=== PATIENT | male | born 1970 | race Caucasian/White ===

== ENCOUNTER → 2022-01-22 06:17 | Outpatient (CLI) | payer OTHER, SELFPAY ==
[2022-01-21 17:06] LABS: Basophils # 0.1 K/mm3 (0-0.2); Basophils % 0.9 % (0.1-2.0); Eosinophils # 0.2 K/mm3 (0.0-0.4); Eosinophils % 2.2 % (0.1-12.0); Hematocrit 48.1 % (42.0-52.0); Hemoglobin 14.9 g/dL (14.1-18.0); Lymphocytes # 1.7 K/mm3 (0.7-4.5); Lymphocytes % 17.7 % (10-50); Mean Corpuscular Hemoglobin 29.5 pg (27.0-31.2); Mean Corpuscular Volume 95.3 fl (80-94); Mean Platelet Volume 9.2 fl (7.4-10.4); Monocytes # 0.5 K/mm3 (0.1-1.0); Monocytes % 5.1 % (1.7-9.3); Neutrophils # 7.1 K/mm3 (1.8-7.8); Neutrophils % 74.2 % (37.0-80.0); Platelet Count 215 K/mm3 (142-424); Red Blood Count 5.05 M/mm3 (4.60-6.20); Red Cell Distribution Width 14.5 % (11.5-17.5); White Blood Count 9.6 K/mm3 (4.8-10.8)
[2022-01-21 17:31] LABS: Hemoglobin A1C 6.9 % (4.0-6.0)
[2022-01-21 17:53] LABS: Alanine Aminotransferase 24 U/L (12-78); Albumin Level 3.9 g/dl (3.5-5.0); Albumin/Globulin Ratio 1.1 (1.1-1.8); Alkaline Phosphatase 96 U/L (38-126); Anion Gap 11.2 mEq/L (5-15); Aspartate Amino Transferase 29 U/L (17-59); Bilirubin,Total 0.5 mg/dl (0.2-1.3); Blood Urea Nitrogen 15 mg/dl (9-20); Calcium 9.4 mg/dl (8.4-10.2); Carbon Dioxide 25 mmol/L (22.0-30.0); Chloride 103 mmol/L (98-107); Chol/HDL Ratio 4.6 (1-3.5); Cholesterol 151 mg/dl (140-200); Estimated Glomerular Filt Rate 102 ml/min (>60); GFR (African American) 123 ML/MIN (>60); Globulin 3.5 g/dL (1.3-3.2); Glucose 131 mg/dl (74-100); HDL Cholesterol 33 mg/dl (40-60); Potassium 4.2 mmoL/L (3.5-5.1); Sodium 135 mmol/L (136-145); Total Protein,Serum 7.4 g/dl (6.3-8.2); Triglycerides 193 mg/dl (30-150); VLDL Cholesterol 39 mg/dL (0-40)
[2022-01-21 18:10] LABS: Direct LDL Cholesterol 80.52 mg/dL (100-129)
[2022-01-21 18:25] LABS: Prostate Specific Ag Screen 0.3 ng/ml (0.0-4.0); Thyroid Stimulating Hormone 0.89 uIU/mL (0.465-4.68)
== END ==
PROVIDERS: PCP Family Medicine; Visit Provider Family Medicine
DX: I25.10 Atherosclerotic heart disease of native coronary artery without angina pectoris (principal); E11.9 Type 2 diabetes mellitus without complications; E66.01 Morbid (severe) obesity due to excess calories; Z68.43 Body mass index [BMI] 50.0-59.9, adult; Z76.89 Persons encountering health services in other specified circumstances; Z79.4 Long term (current) use of insulin; Z12.5 Encounter for screening for malignant neoplasm of prostate
CPT/HCPCS: 80053; 80061; 83036; 84443; 85025; G0103

== ENCOUNTER → 2022-04-27 13:19 | Outpatient (CLI) | payer OTHER, SELFPAY ==
--- NOTE | 2022-04-27 13:20 | MR_ITS ---
FINAL REPORT CLINICAL HISTORY: lower back pain, lumbar radiculopathy bilateral leg pain , numbness and tingling x years no recent injury/trauma FINDINGS: MRI LUMBAR SPINE W/O CONTRAST Multiplanar MR imaging of the lumbar spine was performed without contrast. On the sagittal T2-weighted images, disc degeneration and endplate changes are seen at multiple levels. There are several small Schmorl's nodes. The vertebral alignment is normal. There is no evidence of fracture. The conus has an unremarkable appearance. T12-L1: There is an annular disc bulge with facet arthropathy and vertebral osteophytes. L1-2: An annular disc bulge is present. L2-3: An annular disc bulge is present. There is mild left neural foraminal narrowing. L3-4: An annular disc bulge is present. There is small left posterolateral disc protrusion. There is moderate bilateral neural foraminal narrowing. L4-5: There is an annular disc bulge with facet arthropathy and vertebral osteophytes. There is moderate right and severe left neural foraminal narrowing. L5-S1: There is an annular disc bulge with facet arthropathy and vertebral osteophytes. There is a left foraminal disc protrusion with left lateral recess stenosis and left S1 nerve root impingement. There is mild right and severe left neural foraminal narrowing. There is mild spurring of the SI joints. IMPRESSION: Multilevel disc degeneration and spondylosis with areas of neural foraminal narrowing which is worse on the left at L4-5 and L5-S1. Left foraminal disc protrusion at L5-S1 with left lateral recess stenosis and left S1 nerve root impingement. Reviewed, Interpreted and Dictated by Tuan Lin III, MD Transcribed by Leslie Hoyt Authenticated and [facility]
== END ==
PROVIDERS: PCP Family Medicine; Visit Provider Family Medicine
DX: M51.86 Other intervertebral disc disorders, lumbar region (principal)
CPT/HCPCS: 72148; 76376

== ENCOUNTER → 2022-07-15 11:05 | Outpatient (POV) | payer OTHER, SELFPAY ==
[2022-07-15 11:25] VITALS: BP 133/87; PULSE 102; RESP 20; O2SAT 96; BMI 51.0
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
== END | disposition home or self-care (01) ==
PROVIDERS: PCP Family Medicine; Visit Provider Nurse Practitioner Family
DX: M51.9 Unspecified thoracic, thoracolumbar and lumbosacral intervertebral disc disorder (principal); M54.16 Radiculopathy, lumbar region; M47.26 Other spondylosis with radiculopathy, lumbar region; M79.604 Pain in right leg; M79.605 Pain in left leg
CPT/HCPCS: 99202; G0463

== ENCOUNTER 2022-08-03 08:32 | Day surgery (SDC) | payer MEDICARE, OTHER, SELFPAY ==
[2022-08-03 08:46] VITALS: BP 178/104; PULSE 108; RESP 18; TEMP 36.4; O2SAT 98; BMI 51.0
[2022-08-03 09:01] VITALS: RESP 19; O2SAT 98
[2022-08-03 09:02] VITALS: BP 162/100; PULSE 98; RESP 18; O2SAT 98
[2022-08-03 09:10] VITALS: BP 143/95; PULSE 94; RESP 18; O2SAT 98
--- NOTE | 2022-08-03 09:16 | EXP.PAIN.PRO ---
Procedure Date: 08/03/22 Time: 09:00 Anesthesiologist:: Alen Byers CRNA Complications:: None Pre-procedure Diagnosis:: Degenerative disc disease lumbar spine multilevels. Lumbar radiculopathy. Post-procedure Diagnosis:: Same. Indications for Procedure:: Very pleasant morbidly obese 52-year-old male comes our clinic today for lumbar epidural steroid injection at L4-5 level. This will be his initial injection. He complains of low back pain as well as bilateral leg radicular symptoms. He rates his pain 7/10. Procedure Details:: Procedure: Lumbar epidural steroid injection under fluoroscopy Informed consent was obtained and the risks and benefits of the procedure were explained to the patient. The patient was taken to the procedure room and noninvasive monitors placed, including noninvasive blood pressure cuff and pulse oximeter. The back was viewed using C-arm Fluoroscopy and prepped using Chloraprep as a cleansing solution and the L4-L5 interspace was palpated. Skin and subcutaneous tissues were anesthetized using lidocaine 1.5% and a 25-gauge needle. After this, an 18-gauge Touhy epidural needle was placed into the L4-L5 interspace and advanced using fluoroscopic guidance and loss of resistance to air until the epidural space was encountered. After confirmation of needle placement in the epidural space, with dye, a solution containing normal saline, 3 mL and Depo-Medrol 80 mg were incrementally injected into the lumbar epidural space. The patient tolerated the procedure well with no complications. The patient was observed in the Pain Clinic and then discharged home neurologically intact. Plan and Disposition:: Patient was discharged without incident
== END 2022-08-03 09:10 | disposition home or self-care (01) ==
PROVIDERS: PCP Family Medicine; Visit Provider Nurse Anesthetist, Certified Registered
DX: M51.16 Intervertebral disc disorders with radiculopathy, lumbar region (principal)
CPT/HCPCS: 62323; J1040

== ENCOUNTER → 2022-08-16 08:40 | Outpatient (POV) | payer OTHER, SELFPAY ==
[2022-08-16 09:23] VITALS: BP 141/89; PULSE 111; RESP 20; O2SAT 98; BMI 48.9
--- NOTE | 2022-08-16 09:36 | EXP.PAIN.SOA ---
[facility] Pain Management SOAP Note Subjective:: Patient is a pleasant 52-year-old male who presents today for follow-up of lumbar epidural steroid injection at L4-L5 on 08/03/2022. We are currently treating the patient for degenerative disc disease of lumbar spine with lumbar radiculopathy symptoms, lumbar spondylosis, lumbar nerve root impingement, bilateral leg pain, low back pain. Today he rates his pain a 5 out of 10. Patient denies any new trauma or injury. Patient denies any change location or type of pain he experiences. Patient states this last injection did provide upwards of 30% relief in his back however did not make any difference in his leg pain and only lasted for approximately 3 days. Patient states that he is in the process of trying to get gastric bypass surgery scheduled. Patient states he is being seen by Dr. Garcia and that is currently been trying to get everything in order to be seen by [facility]. Patient states that he has lost approximately 100 pounds since January 2022. Patient does state that he continues to experience significant, constant aching and throbbing sensations in his low back that radiates into his bilateral lower extremities. Patient does state that this is worse with increased activity. He states that even doing the dishes becomes unbearable and feels like his spine is twisted to the left side following this activity. Patient does have a significant history of A. fib and CHF. He is on Plavix. At our last visit patient was prescribed compounding cream however he states his insurance would not cover this and he is on disability with a limited income. Patient is currently managed with gabapentin 800 mg 3 times a day and [place] 7.5 mg twice a day from his primary care doctor. Patient denies any side effects from these medications. He states these medications do help with his pain symptoms. His Todd is [id number]. Its been reviewed and appropriate. Review of Systems: General: No recent weight changes, no fever, no sleep disturbances Respiratory: No cough, no shortness of air, no recurring pulmonary infections Cardiovascular/peripheral vascular: No chest pain, no palpitations, no edema, no shortness of breath Gastrointestinal: No new onset incontinence, normal bowel movements reported Genitourinary: No new onset incontinence Musculoskeletal: Low back pain, leg pain Psychiatric: [Normal mood/affect] Neurological: [Denies weakness in extremities], [denies balance issues] Objective:: Physical Exam: General: Alert and oriented x3, no acute distress, pleasant and cooperative Lungs: Respirations even and unlabored, symmetrical chest expansion Eyes: PERRL Musculoskeletal: Flexion and extension of lumbar [spine] somewhat guarded secondary to pain, [antalgic gait noted] Neurological: Speech clear, no gross sensory deficit Assessment:: Degenerative disc disease of lumbar spine with lumbar radiculopathy symptoms, lumbar spondylosis, lumbar nerve root impingement, bilateral leg pain, low back pain Plan:: Patient continues to experience significant pain in his low back with radiating symptoms into his lower extremities. Patient did have limited range of motion of his lumbar spine during today's visit. I have discussed with the patient that he may benefit from a lumbar epidural steroid injection at L5-S1. Patient did have a annular bulge along with arthritis osteophytes and a left S1 nerve root impingement at this level. Patient also had mild right and severe left neuroforaminal narrowing. Risk and benefits were discussed with the patient. He would like to proceed forward with this plan of care. Patient is on Plavix and a cholesterol medication that will need to be stopped prior to this injection. We will contact Dr. Garcia to confirm that this is acceptable. We will schedule the patient for a diagnostic LESI L5-S1. Patient has been instructed to contact the clinic with any concerns before the next appointment. Dr. Bustillo has rev
== END ==
PROVIDERS: PCP Family Medicine; Visit Provider Nurse Practitioner Family
DX: M51.16 Intervertebral disc disorders with radiculopathy, lumbar region (principal); M47.26 Other spondylosis with radiculopathy, lumbar region; M79.604 Pain in right leg; M79.605 Pain in left leg
CPT/HCPCS: 99212; G0463

== ENCOUNTER 2022-08-24 07:28 | Day surgery (SDC) | payer OTHER, SELFPAY ==
[2022-08-24 08:12] VITALS: BP 138/82; PULSE 103; RESP 18; TEMP 36.4; O2SAT 100; BMI 48.9
[2022-08-24 08:35] VITALS: BP 138/100; PULSE 97; RESP 18
[2022-08-24 08:39] VITALS: BP 135/84; PULSE 91; RESP 18; O2SAT 100
--- NOTE | 2022-08-24 08:56 | EXP.PAIN.PRO ---
Procedure Date: 08/24/22 Time: 08:20 Anesthesiologist:: Alen Byers CRNA Complications:: None Pre-procedure Diagnosis:: Degenerative disease of her spine multilevel severe lumbar radiculopathy Post-procedure Diagnosis:: Same. Indications for Procedure:: Very pleasant 52-year-old male that comes our clinic today for lumbar epidural steroid injections L5-S1 level. Patient status post 1 lumbar epidural steroid injection at the same level. He reports 3 to 5 days of significant improvement terms of low back pain as well as bilateral hip and leg radicular symptoms. Procedure Details:: Procedure: Lumbar epidural steroid injection under fluoroscopy Informed consent was obtained and the risks and benefits of the procedure were explained to the patient. The patient was taken to the procedure room and noninvasive monitors placed, including noninvasive blood pressure cuff and pulse oximeter. The back was viewed using C-arm Fluoroscopy and prepped using Chloraprep as a cleansing solution and the L4-L5 interspace was palpated. Skin and subcutaneous tissues were anesthetized using lidocaine 1.5% and a 25-gauge needle. After this, an 18-gauge Touhy epidural needle was placed into the L4-L5 interspace and advanced using fluoroscopic guidance and loss of resistance to air until the epidural space was encountered. After confirmation of needle placement in the epidural space, with dye, a solution containing normal saline, 3 mL and Depo-Medrol 80 mg were incrementally injected into the lumbar epidural space. The patient tolerated the procedure well with no complications. The patient was observed in the Pain Clinic and then discharged home neurologically intact. Plan and Disposition:: Patient was discharged without incident
== END 2022-08-24 08:39 | disposition home or self-care (01) ==
LOC: SC.PAINP 07:28
PROVIDERS: PCP Family Medicine; Visit Provider Nurse Anesthetist, Certified Registered
DX: M51.16 Intervertebral disc disorders with radiculopathy, lumbar region (principal)
CPT/HCPCS: 62323; J1040

== ENCOUNTER → 2022-09-09 08:36 | Outpatient (POV) | payer OTHER, SELFPAY ==
[2022-09-09 09:09] VITALS: BP 148/73; PULSE 63; RESP 18; O2SAT 99; BMI 47.9
--- NOTE | 2022-09-09 09:22 | EXP.PAIN.SOA ---
[facility] Pain Management SOAP Note Subjective:: Patient is a pleasant 52-year-old male who presents today for follow-up of lumbar epidural steroid injection at L4-L5 on 08/24/2022. We are currently treating the patient for degenerative disc disease of lumbar spine with lumbar radiculopathy symptoms, lumbar spondylosis, lumbar nerve root impingement, bilateral leg pain, low back pain. Today he states he has had at least 40% improvement following this injection however it only lasted 1 week. He does feel like he is back to his baseline and rates his pain a 5 out of 10. Patient denies any new trauma or injury. Patient denies any change to the location or type of pain he experiences. Patient states that he did notice he was able to walk more following this injection with decreased pain symptoms. Patient does state that his pain is all in his low back with radiating symptoms into his bilateral lower extremities. Patient does describe this as a aching, throbbing sensation that is worse with increased activity. Patient states he does frequently have to take breaks and rest due to the pain. Patient states that even doing simple activities of daily living such as light cooking and cleaning because significant pain. Patient is currently trying to get scheduled for a gastric bypass surgery however he states he is still working on insurance at this time. Patient states that he is now up to 809 pounds loss since January 2022. Patient does have a history of A-fib and CHF and is on Xarelto. Patient was prescribed compounding cream in the past however it was not covered by his insurance. Patient is currently managed with gabapentin 800 mg 3 times a day and [place] 7.5 mg twice a day from his primary care doctor. Patient denies any side effects from these medications. He states these medications do help manage his pain symptoms and make them more tolerable. His Todd is [id number]. Its been reviewed and appropriate. Review of Systems: General: No recent weight changes, no fever, no sleep disturbances Respiratory: No cough, no shortness of air, no recurring pulmonary infections Cardiovascular/peripheral vascular: No chest pain, no palpitations, no edema, no shortness of breath Gastrointestinal: No new onset incontinence, normal bowel movements reported Genitourinary: No new onset incontinence Musculoskeletal: Low back pain, bilateral leg pain Psychiatric: [Normal mood/affect] Neurological: [Denies weakness in extremities], [denies balance issues] Objective:: Physical Exam: General: Alert and oriented x3, no acute distress, pleasant and cooperative Lungs: Respirations even and unlabored, symmetrical chest expansion Eyes: PERRL Musculoskeletal: Flexion and extension of lumbar [spine] somewhat guarded secondary to pain, [antalgic gait noted] Neurological: Speech clear, no gross sensory deficit ORT score updated with low risk Assessment:: Degenerative disc disease of lumbar spine with lumbar radiculopathy symptoms, lumbar spondylosis, lumbar nerve root impingement Plan:: Patient is experiencing significant pain in his low back with radiating symptoms into his bilateral legs. Patient did have limited range from his lumbar spine during today's visit. I have discussed with the patient that he may benefit from repeat lumbar epidural steroid injection. Risk and benefits were discussed with the patient. He would like to proceed forward with this plan of care. Patient is on Xarelto and will need to come off this medication 5 days prior to this injection. We will contact his primary care doctor's office and confirm there are no contraindications for this injection. We will schedule him for a LESI L4-L5. Patient has been instructed to contact the clinic with any concerns before the next appointment. Dr. Bustillo has reviewed this note and agrees with this plan of care. This note was dictated using voice recognition software and make contain errors or omissions. [facility] Disclaimer:
== END ==
PROVIDERS: PCP Family Medicine; Visit Provider Nurse Practitioner Family
DX: M51.16 Intervertebral disc disorders with radiculopathy, lumbar region (principal); M47.26 Other spondylosis with radiculopathy, lumbar region; Z79.899 Other long term (current) drug therapy
CPT/HCPCS: 99212; G0463

== ENCOUNTER 2022-09-28 07:46 | Day surgery (SDC) | payer OTHER, SELFPAY ==
[2022-09-28 08:17] VITALS: BP 135/83; PULSE 96; RESP 18; TEMP 36.1; O2SAT 98; BMI 47.9
[2022-09-28 09:20] VITALS: BP 150/99; PULSE 91; RESP 19; O2SAT 97
[2022-09-28 09:22] VITALS: BP 150/99; PULSE 91; RESP 18; O2SAT 97
[2022-09-28 09:27] VITALS: BP 119/83; PULSE 88; RESP 18; O2SAT 96
--- NOTE | 2022-09-28 09:39 | EXP.PAIN.PRO ---
Procedure Date: 09/28/22 Time: 09:00 Anesthesiologist:: Alen Byers CRNA Complications:: None Pre-procedure Diagnosis:: Degenerative disc disease lumbar spine multilevels. Lumbar radiculopathy Post-procedure Diagnosis:: Same. Indications for Procedure:: Very pleasant 52-year-old male that returns for a third lumbar epidural steroid injection at L4-5 level. Patient reporting 50 to 60% improvement terms of his overall low back pain as well as bilateral hip and leg radicular symptoms with his previous injections. His main complaint is low back pain as well as bilateral hip and leg radicular symptoms. He rates his pain today 01/24 Procedure Details:: Procedure: Lumbar epidural steroid injection under fluoroscopy Informed consent was obtained and the risks and benefits of the procedure were explained to the patient. The patient was taken to the procedure room and noninvasive monitors placed, including noninvasive blood pressure cuff and pulse oximeter. The back was viewed using C-arm Fluoroscopy and prepped using Chloraprep as a cleansing solution and the L4-L5 interspace was palpated. Skin and subcutaneous tissues were anesthetized using lidocaine 1.5% and a 25-gauge needle. After this, an 18-gauge Touhy epidural needle was placed into the L4-L5 interspace and advanced using fluoroscopic guidance and loss of resistance to air until the epidural space was encountered. After confirmation of needle placement in the epidural space, with dye, a solution containing normal saline, 3 mL and Depo-Medrol 80 mg were incrementally injected into the lumbar epidural space. The patient tolerated the procedure well with no complications. The patient was observed in the Pain Clinic and then discharged home neurologically intact. Plan and Disposition:: Patient was discharged without incident.
== END 2022-09-28 09:27 | disposition home or self-care (01) ==
PROVIDERS: PCP Family Medicine; Visit Provider Nurse Anesthetist, Certified Registered
DX: M51.16 Intervertebral disc disorders with radiculopathy, lumbar region (principal)
CPT/HCPCS: 62323; J1040; Q9966

== ENCOUNTER → 2022-10-15 12:49 | Outpatient (POV) | payer OTHER, SELFPAY ==
--- NOTE | 2022-10-15 13:25 | EXP.PAIN.SOA ---
[facility] Pain Management SOAP Note Subjective:: Patient is a pleasant 52-year-old male who presents today for follow-up of lumbar epidural steroid injection at L4-L5 on 09/28/2022. We are currently treating the patient for degenerative disc disease of lumbar spine with lumbar radiculopathy symptoms, lumbar spondylosis, lumbar nerve root impingement, bilateral leg pain, low back pain. Today he rates his pain a 7 out of 10. Patient denies any new trauma or injury. Patient states he only had approximately 25% improvement following his lumbar epidural and lasting 1 week. He does state that he is back to his baseline today. He describes his back pain as a aching, throbbing sensation that is worse with increased activity. Patient states he cannot tolerate to even stand and do the dishes due to his worsening pain symptoms. Patient has recently increased his activity due to the warmer weather and worked on his bike yesterday however by the end of the night his pain was a 10 out of 10. Patient does feel like he has decreased function due to his worsening pain symptoms. Patient is still trying to be scheduled for gastric bypass surgery. He does have a significant history of A-fib and CHF. Patient is on Xarelto. He is currently managed with gabapentin 800 mg 3 times a day and [place] 7.5 mg twice a day from his primary care doctor. His Todd is [id number]. Its been reviewed and appropriate. Review of Systems: General: No recent weight changes, no fever, no sleep disturbances Respiratory: No cough, no shortness of air, no recurring pulmonary infections Cardiovascular/peripheral vascular: No chest pain, no palpitations, no edema, no shortness of breath Gastrointestinal: No new onset incontinence, normal bowel movements reported Genitourinary: No new onset incontinence Musculoskeletal: Low back pain Psychiatric: [Normal mood/affect] Neurological: [Denies weakness in extremities], [denies balance issues] Objective:: Physical Exam: General: Alert and oriented x3, no acute distress, pleasant and cooperative Lungs: Respirations even and unlabored, symmetrical chest expansion Eyes: PERRL Musculoskeletal: Flexion and extension of lumbar [spine] somewhat guarded secondary to pain, [antalgic gait noted] Neurological: Speech clear, no gross sensory deficit Assessment:: Degenerative disc disease of lumbar spine with lumbar radiculopathy symptoms, lumbar spondylosis, lumbar nerve root impingement, bilateral leg pain, low back pain Plan:: Patient continues to experience significant pain in his low back on a daily basis with worsening symptoms. Patient did have limited range of motion of his lumbar spine during today's visit. I have discussed with the patient that he may benefit from a intrathecal pain pump trial in the future. Risk and benefits and educational handouts were given during today's visit. Patient agrees with this plan of care and would like to proceed forward. I will order a psychiatric evaluation and if he is deemed an appropriate candidate we will plan for the trial in the future. Patient will be scheduled for a psychiatric evaluation and follow-up in clinic following this appointment for reevaluation of symptoms and plan of care. Patient has been instructed to contact the clinic with any concerns before the next appointment. Dr. Bustillo has reviewed this note and agrees with this plan of care. This note was dictated using voice recognition software and make contain errors or omissions. [facility] Disclaimer: The information contained in this section may have been updated after the patient was seen, as this information can be updated by other users. Medical History CAD (coronary artery disease), [place] coronary artery Cardiomegaly CHF (congestive heart failure) Diabetes mellitus Osteoarthritis Primary hypertension Varicose vein of leg Surgical History (Reviewed 10/05/22 @ 09:08 by Lynda Dent SRN
[2022-10-15 14:57] VITALS: BP 112/67; PULSE 70; RESP 18; O2SAT 98; BMI 47.5
== END ==
PROVIDERS: PCP Family Medicine; Visit Provider Nurse Practitioner Family
DX: M51.16 Intervertebral disc disorders with radiculopathy, lumbar region (principal); M47.26 Other spondylosis with radiculopathy, lumbar region; M79.604 Pain in right leg; M79.605 Pain in left leg
CPT/HCPCS: 99212; G0463

== ENCOUNTER → 2022-11-05 07:42 | Outpatient (POV) | payer OTHER, SELFPAY ==
[2022-11-05 07:57] VITALS: BP 129/91; PULSE 85; RESP 18; O2SAT 97; BMI 47.5
--- NOTE | 2022-11-05 08:36 | EXP.PAIN.SOA ---
[facility] Pain Management SOAP Note Subjective:: This patient is a very pleasant 400 pound male who returns our clinic today after receiving lumbar epidural steroid injection at the L4-5 level. Patient states 7 to 10 days of complete relief in terms of his low back pain and bilateral hip and leg radicular symptoms. After which time his pain returned in the lumbar spine area as well as bilateral hip and leg radicular symptoms to the knees. Patient's lumbar MRI shows multiple level disc bulge. Multilevel spondylosis. Multilevel facet arthropathy. Disc protrusion to the left L5-S1 with left lateral recess stenosis of the left S1 nerve root impingement. Patient also has extreme point tenderness over the bilateral sacroiliac joints. He has positive Aravind's test. Positive bilateral sacroiliac joint compression test. Patient also has difficulty with flexion, extension, left and right rotation in the lumbar spine. Difficulty with ambulating any distance due to increased low back pain with bilateral hip and leg radicular symptoms. Patient has been told by spine surgery no surgery will be done due to his body habitus. Patient takes [place] 10 mg 1 p.o. twice daily from his primary care physician. His Todd #[id number] has been reviewed and appropriate. Objective:: ient is awake alert [place] x3. In no acute distress. Flexion-extension lumbar spine somewhat guarded secondary to pain. Deep tendon reflexes upper and lower extremities normal. Motor strength upper and lower extremities normal. There is no gross sensory deficit. Gait is normal. Assessment:: Degenerative disc disease lumbar spine multilevels. Lumbar radiculopathy symptoms. Lumbar spondylosis. Multilevel lumbar facet arthropathy. Bilateral sacroiliitis. Multilevel disc bulge lumbar spine. Plan:: Discussed in detail with the patient regarding treatment options other than surgical. Patient not interested in having intrathecal pain pump management. Patient would like to try other types of injection therapy. I discussed in detail with the patient regarding lumbar facet blocks. Bilateral sacral iliac joint injections. We will proceed with bilateral sacroiliac joint injections. We will discuss at his next follow-up potential L4-5, L5-S1 lumbar facet injections. We also discussed future radiofrequency ablation of the lumbar facet joints if necessary. [facility] Disclaimer: The information contained in this section may have been updated after the patient was seen, as this information can be updated by other users. Medical History CAD (coronary artery disease), [place] coronary artery Cardiomegaly CHF (congestive heart failure) Diabetes mellitus Osteoarthritis Primary hypertension Varicose vein of leg Surgical History History of cardiac cath Family History Other No significant family history Social History Smoking Status: Never smoker alcohol intake: former substance use type: denies use current occupational status: other Travel in the last 8 weeks: None
== END ==
PROVIDERS: PCP Family Medicine; Visit Provider Nurse Anesthetist, Certified Registered
DX: M51.16 Intervertebral disc disorders with radiculopathy, lumbar region (principal); M47.26 Other spondylosis with radiculopathy, lumbar region; M46.1 Sacroiliitis, not elsewhere classified
CPT/HCPCS: 99212; G0463

== ENCOUNTER 2022-11-09 07:35 | Day surgery (SDC) | payer OTHER, SELFPAY ==
[2022-11-09 08:10] VITALS: BP 113/76; PULSE 58; RESP 18; TEMP 36.5; O2SAT 90; BMI 48.8
[2022-11-09 08:27] VITALS: BP 135/90; PULSE 99; RESP 20; O2SAT 97
[2022-11-09 08:28] VITALS: BP 135/90; PULSE 99; RESP 20; O2SAT 97
[2022-11-09 08:34] VITALS: BP 127/68; PULSE 57; RESP 18; O2SAT 90
--- NOTE | 2022-11-09 08:36 | P.PCN_ITS ---
Procedure Date: 11/09/22 Time: 08:20 Anesthesiologist:: Alen Byers CRNA Complications:: None Pre-procedure Diagnosis:: Bilateral sacroiliitis. Degenerative disc disease lumbar spine multilevels. Lumbar radiculopathy. Lumbar spondylosis. Multilevel lumbar facet arthropathy. Post-procedure Diagnosis:: Same. Indications for Procedure:: Patient is a very pleasant 52-year-old male comes our clinic today for bilateral sacroiliac joint injections. He has extreme point tenderness over the bilateral sacroiliac joints. He rates his pain 7/10. Patient has difficulty transitioning from sitting to standing. Procedure Details:: Procedure: Bilateral sacroiliac joint injections under fluoroscopy Informed consent was obtained and the risks and benefits of the procedure were explained to the patient.~ The patient was taken to the procedure room and noninvasive monitors were placed including a noninvasive blood pressure cuff and pulse oximeter.~ The patient was placed prone on the procedure table. Both hips were cleansed using Betadine as a cleansing solution. C-arm fluoroscopy was used to view the right sacroiliac joint.~ The skin and subcutaneous tissues were anesthetized using lidocaine 1.5% and a 25-gauge needle.~ After this, a 22-gauge spinal needle was inserted under fluoroscopic guidance into the inferior aspect of the right sacroiliac joint.~ Omnipaque dye was injected and good spread was seen throughout the joint.~ After this, approximately 5 mL of bupivacaine, 0.25% and Depo-Medrol, 40 mg was incrementally injected into the right sacroiliac joint. We then moved to the left sacroiliac joint.~ The skin and subcutaneous tissues were anesthetized using lidocaine 1.5% and a 25-gauge needle.~ After this, a 22- gauge spinal needle was inserted under fluoroscopic guidance into the inferior aspect of the left sacroiliac joint.~ Omnipaque dye was injected and good spread was seen throughout the joint. After this, approximately 5 mL of bupivacaine, 0.25% and Depo-Medrol, 40 mg was incrementally injected into the left sacroiliac joint.~ The patient tolerated the procedure well with no complications. The patient was observed in the Pain Clinic and then was discharged home neurologically intact. Plan and Disposition:: Patient was reevaluated 10 minutes post procedure. He reports 90% improvement terms of his overall low lumbar back pain, posterior hip pain bilaterally.
== END 2022-11-09 08:34 | disposition home or self-care (01) ==
PROVIDERS: PCP Family Medicine; Visit Provider Nurse Anesthetist, Certified Registered
DX: M51.16 Intervertebral disc disorders with radiculopathy, lumbar region (principal); M47.26 Other spondylosis with radiculopathy, lumbar region; M46.1 Sacroiliitis, not elsewhere classified
CPT/HCPCS: 27096; G0260; J1040

== ENCOUNTER → 2022-11-25 12:36 | Outpatient (POV) | payer OTHER, SELFPAY ==
[2022-11-25 13:25] VITALS: BP 128/74; PULSE 57; RESP 18; O2SAT 97; BMI 47.5
--- NOTE | 2022-11-25 13:31 | EXP.PAIN.SOA ---
[facility] Pain Management SOAP Note Subjective:: Patient is a pleasant 52-year-old male who presents today for follow-up of bilateral SI injections on 11/09/2022. We are currently treating the patient for degenerative disc disease of lumbar spine multilevels with lumbar radiculopathy symptoms, lumbar spondylosis, multilevel lumbar facet arthropathy, bilateral sacroiliitis, multilevel disc bulge. Today he rates his pain a 7 out of 10. He states he only had 3 to 4 hours relief following these injections. During those few hours he states he might of had 60% relief. Patient does state that he is back to his baseline today or worse. He denies any new trauma or injury or change to the location or type of pain he experiences. He does state that it is continuous his back pain and describes it as a constant aching, throbbing sensation that is worse with increased activity. Patient does a lot of of riding on a motorcycle as well as working on vehicles which causes significant pain and difficulty. Patient cannot tolerate prolonged activities such as cooking and cleaning due to his worsening pain symptoms. He does state that the pain continues to go down his lower extremities with the left worse than the right. He does state that he has weakness and numbness in both legs. Previously we have discussed about possibility of a pain pump trial. He states he is still interested in this option. Patient is currently managed with [place] 10 mg twice a day and gabapentin 800 mg 3 times a day from his primary care doctor. His Todd is [id number]. Its been reviewed and appropriate. Review of Systems: General: No recent weight changes, no fever, no sleep disturbances Respiratory: No cough, no shortness of air, no recurring pulmonary infections Cardiovascular/peripheral vascular: No chest pain, no palpitations, no edema, no shortness of breath Gastrointestinal: No new onset incontinence, normal bowel movements reported Genitourinary: No new onset incontinence Musculoskeletal: Low back pain, leg pain Psychiatric: [Normal mood/affect] Neurological: [Denies weakness in extremities], [denies balance issues] Objective:: Physical Exam: General: Alert and oriented x3, no acute distress, pleasant and cooperative Lungs: Respirations even and unlabored, symmetrical chest expansion Eyes: PERRL Musculoskeletal: Flexion and extension of lumbar [spine] somewhat guarded secondary to pain, [antalgic gait noted] Neurological: Speech clear, no gross sensory deficit CLINICAL HISTORY: lower back pain, lumbar radiculopathy? bilateral leg pain , numbness and tingling? x years ? no recent injury/trauma FINDINGS: MRI LUMBAR SPINE W/O CONTRAST? Multiplanar MR imaging of the lumbar spine was performed without contrast. On the sagittal T2-weighted images, disc degeneration and endplate changes are seen at multiple levels.? There are several small Schmorl's nodes. ? The vertebral alignment is normal.? There is no evidence of fracture.? The conus has an unremarkable appearance. T12-L1:? There is an annular disc bulge with facet arthropathy and vertebral osteophytes.? L1-2:? An annular disc bulge is present.? L2-3:? An annular disc bulge is present.? There is mild left neural foraminal narrowing.? L3-4:? An annular disc bulge is present.? There is small left posterolateral disc protrusion.? There is moderate bilateral neural foraminal narrowing.? L4-5:? There is an annular disc bulge with facet arthropathy and vertebral osteophytes.? There is moderate right and severe left neural foraminal narrowing.? L5-S1:? There is an annular disc bulge with facet arthropathy and vertebral osteophytes.? There is a left foraminal disc protrusion with left lateral recess stenosis and left S1 nerve root impingement. There is mild right and severe left neural foraminal narrowing. There is mild spurring of the SI joints. IMPRESSION: Multilevel disc degeneration and spondylosis with areas of neural foraminal narrowing which
== END ==
PROVIDERS: PCP Family Medicine; Visit Provider Nurse Practitioner Family
DX: M51.16 Intervertebral disc disorders with radiculopathy, lumbar region (principal); M47.26 Other spondylosis with radiculopathy, lumbar region; M46.1 Sacroiliitis, not elsewhere classified
CPT/HCPCS: 99212; G0463

== ENCOUNTER 2022-12-07 08:05 | Day surgery (SDC) | payer OTHER, SELFPAY ==
[2022-12-07 08:27] VITALS: BP 126/62; PULSE 87; RESP 18; TEMP 36.6; O2SAT 95; BMI 46.2
[2022-12-07 09:03] VITALS: BP 122/88; PULSE 96; RESP 18; O2SAT 98
[2022-12-07 09:04] VITALS: BP 122/88; PULSE 96; RESP 18; O2SAT 98
[2022-12-07 09:11] VITALS: BP 124/86; PULSE 99; RESP 18; O2SAT 95
--- NOTE | 2022-12-07 09:11 | EXP.PAIN.PRO ---
Procedure Date: 12/07/22 Time: 09:00 Anesthesiologist:: Alen Byers CRNA Complications:: None Pre-procedure Diagnosis:: Degenerative disc disease lumbar spine multilevels. Lumbar radiculopathy. Bilateral sacroiliitis Post-procedure Diagnosis:: Same. Indications for Procedure:: Very pleasant 52-year-old male comes our clinic today for repeat lumbar epidural steroid injection at L5-S1 level. Patient has had this injection in the past with 7 to 14 days of significant improvement. After this time the improvement seems to decrease over the next week. Discussed in detail with the patient regarding his bilateral sacroiliac joint injections in the recent past. Patient states for 3 hours post bilateral sacroiliac joint injection he was pain-free. My suggestion to him today was to repeat the bilateral sacroiliac joint injections. Procedure Details:: Procedure: Lumbar epidural steroid injection under fluoroscopy Informed consent was obtained and the risks and benefits of the procedure were explained to the patient. The patient was taken to the procedure room and noninvasive monitors placed, including noninvasive blood pressure cuff and pulse oximeter. The back was viewed using C-arm Fluoroscopy and prepped using Chloraprep as a cleansing solution and the L5-S1 interspace was palpated. Skin and subcutaneous tissues were anesthetized using lidocaine 1.5% and a 25-gauge needle. After this, an 18-gauge Touhy epidural needle was placed into the L5 to interspace and advanced using fluoroscopic guidance and loss of resistance to air until the epidural space was encountered. After confirmation of needle placement in the epidural space, with dye, a solution containing normal saline, 3 mL and Depo-Medrol 80 mg were incrementally injected into the lumbar epidural space. The patient tolerated the procedure well with no complications. The patient was observed in the Pain Clinic and then discharged home neurologically intact. Plan and Disposition:: Patient was discharged without incident.
== END 2022-12-07 09:11 | disposition home or self-care (01) ==
PROVIDERS: PCP Family Medicine; Visit Provider Nurse Anesthetist, Certified Registered
DX: M51.16 Intervertebral disc disorders with radiculopathy, lumbar region (principal); M46.1 Sacroiliitis, not elsewhere classified
CPT/HCPCS: 62323; J1040

== ENCOUNTER → 2022-12-27 07:58 | Outpatient (POV) | payer OTHER, SELFPAY ==
[2022-12-27 08:15] VITALS: BP 122/81; PULSE 103; RESP 18; O2SAT 97; BMI 47.2
--- NOTE | 2022-12-27 08:51 | EXP.PAIN.SOA ---
[facility] Pain Management SOAP Note Subjective:: Patient is a pleasant 52-year-old male who presents today for follow-up of lumbar epidural steroid injection L5-S1 on 12/07/2022. We are currently treating the patient for degenerative disc disease of lumbar spine multilevels with lumbar radiculopathy symptoms, lumbar facet arthropathy, lumbar spondylosis, bilateral sacroiliitis, multilevel disc bulge. Today he rates his pain a 6 out of 10. He states he only had approximately 20% relief following this injection and only lasting 3 to 4 days. He states that he has felt like his previous epidural that was a little higher may have done better and lasted approximately 10 days patient does continue to state his pain is all in his low back. He does describe this as an aching, throbbing sensation that is worse with increased activity. He does state it interferes with his ability perform activities of daily living such as cooking and cleaning or even riding on his motorcycle. Patient has tried [id number] medications along with heat and ice and topicals with minimal improvement. Patient has had physical therapy in the past with no additional improvement. He is currently managed with [place] 10 mg twice a day and gabapentin 800 mg 3 times a day from his primary care doctor. His Todd is [id number]. Its been reviewed and appropriate. Review of Systems: General: No recent weight changes, no fever, no sleep disturbances Respiratory: No cough, no shortness of air, no recurring pulmonary infections Cardiovascular/peripheral vascular: No chest pain, no palpitations, no edema, no shortness of breath Gastrointestinal: No new onset incontinence, normal bowel movements reported Genitourinary: No new onset incontinence Musculoskeletal: Low back pain Psychiatric: [Normal mood/affect] Neurological: [Denies weakness in extremities], [denies balance issues] Objective:: Physical Exam: General: Alert and oriented x3, no acute distress, pleasant and cooperative Lungs: Respirations even and unlabored, symmetrical chest expansion Eyes: PERRL Musculoskeletal: Flexion and extension of lumbar [spine] somewhat guarded secondary to pain, [antalgic gait noted] positive Kemps test Neurological: Speech clear, no gross sensory deficit Assessment:: Degenerative disc disease of lumbar spine multilevels with lumbar radiculopathy symptoms, lumbar facet arthropathy, lumbar spondylosis, bilateral sacroiliitis, multilevel disc bulge Plan:: Patient is experiencing significant pain in his low back with limited range of motion. Patient had a positive Kemps test and does have of MRI findings consistent with lumbar facet arthropathy and lumbar spondylosis. I have discussed with the patient that he may benefit from a lumbar medial branch block. Risk and benefits were discussed with the patient and he would like to proceed forward with this plan of care. Patient is on Plavix and Xarelto and will have to come off these medications prior to these injections. We will consult his primary care doctor and confirm that he can stop these medications. Patient will be scheduled for a lumbar medial branch block bilaterally L4-L5 and L5-S1. Patient has been instructed to contact the clinic with any concerns before the next appointment. Dr. Bustillo has reviewed this note and agrees with this plan of care. This note was dictated using voice recognition software and make contain errors or omissions. [facility] Disclaimer: The information contained in this section may have been updated after the patient was seen, as this information can be updated by other users. Medical History CAD (coronary artery disease), [place] coronary artery Cardiomegaly CHF (congestive heart failure) Diabetes mellitus Osteoarthritis Primary hypertension Varicose vein of leg Surgical History History of cardiac cath Fam
== END ==
PROVIDERS: PCP Family Medicine; Visit Provider Nurse Practitioner Family
DX: M51.16 Intervertebral disc disorders with radiculopathy, lumbar region (principal); M47.26 Other spondylosis with radiculopathy, lumbar region; M46.1 Sacroiliitis, not elsewhere classified
CPT/HCPCS: 99212; G0463

== ENCOUNTER → 2023-06-22 23:00 | Outpatient (CLI) | payer MEDICAID, SELFPAY ==
[2023-06-22 18:17] LABS: Amphetamine/Metha Screen,Urine Negative ng/ml (<1000)
[2023-06-22 18:18] LABS: Barbiturates Screen,Urine Negative ng/ml (<200); Benzodiazepines Screen,Urine Negative ng/ml (<200)
[2023-06-22 18:19] LABS: Cannabinoid Screen,Urine Negative ng/ml (<50); Cocaine Screen,Urine Negative ng/ml (<300)
[2023-06-22 18:20] LABS: Methadone Screen,Urine Negative ng/ml (<300)
[2023-06-22 18:21] LABS: Opiate Screen,Urine Negative ng/ml (<300)
[2023-06-22 18:24] LABS: Phencyclidine Screen,Urine Negative ng/ml (<25)
== END ==
LOC: LAB.DROPOF 06-23 02:40
PROVIDERS: PCP Family Medicine; Visit Provider Family Medicine
DX: Z79.899 Other long term (current) drug therapy (principal)
CPT/HCPCS: 80305

== ENCOUNTER 2023-09-21 09:55 | Outpatient (CLI) | payer MEDICARE, MEDICAID, SELFPAY | END 2023-09-21 23:59 | PROVIDERS: PCP Family Medicine; Visit Provider Physician Assistant | DX: I48.91 Unspecified atrial fibrillation (principal); I25.10 Atherosclerotic heart disease of native coronary artery without angina pectoris; I10 Essential (primary) hypertension; E66.9 Obesity, unspecified; Z68.42 Body mass index [BMI] 45.0-49.9, adult | CPT/HCPCS: 93270 ==

== ENCOUNTER 2023-09-27 07:31 | Outpatient (CLI) | payer MEDICARE, MEDICAID, SELFPAY ==
--- NOTE | 2023-09-27 07:32 | CA_ITS ---
APPROVED REPORT EXAM: Comprehensive 2D, Doppler, and color-flow Echocardiogram [place] Operator: Bozena Lopez CRT Ht: 6 ft 5 in Wt: 293lbs BSA: 2.63 BP: 142/86 mmHg Indications: Congestive Heart Failure, Atrial Fibrillation, Diabetes, CAD, Cardiomyopathy 2D Dimensions LA Volume 122.00 mL LA Volume Index 45.40 mL/m2 (M/F) 16-34 M-Mode Dimensions RVDd 3.61 cm (0.9-2.6) LA Diam 5.35 cm (1.9-4.0) LVDd 5.48 cm (3.5-5.7) LVDs 3.80 cm (3.5-5.7) IVSd 1.57 cm (0.6-1.1) PWd 1.13 cm (0.6-1.1) EF (Teich) 57.60% FS 30.70% EDV (Teich) 146.20 mL TAPSE 1.93 (<1.7) ESV (Teich) 62.00 mL LV Diastology E Decel Time 177 (160-240 msec) E/A Ratio 8.50 LAT A' 3.90 cm/s Aortic Valve AO Peak GR. 4.90 mmHg Mitral Valve MV E Max Elmer. 106.0 (40-130 cm/s) MV A Velocity 13.0 (40-130 cm/s) E/A Ratio 8.50 MV PHT 52.0 ms Pulmonary Valve PV Peak Velocity 72.0 (50-150 cm/s) Tricuspid Valve TR P. Velocity 244.00 cm/s RAP Estimate 10.00 mmHg RVSP 33.80 mmHg Left Ventricle The left ventricle is normal size. The left ventricular systolic function is normal. The left ventricular ejection fraction is within the normal range. There is increased LV wall thickness. Regional wall motion cannot be estimated due to technically difficult study. LVEF is 55%. Diastolic function is indeterminate. Right Ventricle The right ventricle is not very well-visualized, but grossly appears normal in size and function. Atria The left atrium is mildly dilated. The right atrium is mildly dilated. The interatrial septum is not well-visualized. Aortic Valve The aortic valve opens well. There is no aortic valvular stenosis. Trace aortic regurgitation. Mitral Valve The mitral valve is normal in structure. No evidence of mitral valve stenosis. Trace mitral regurgitation. Tricuspid Valve The tricuspid valve leaflets are thin and pliable. Trace tricuspid regurgitation. RVSP is 15-20 mmHg. Pulmonic Valve The pulmonary valve is normal in structure. Trace pulmonic regurgitation. Great Vessels The aortic root is normal in size. The ascending aorta is not well-visualized. The IVC is not well-visualized. Pericardium There is no pericardial effusion. Other Information Study Quality: Technically Difficult Conclusion Technically difficult study due to poor acoustic windows. Normal LV size and function. The right ventricle is not very well-visualized, but grossly appears normal in size and function. No significant valvular stenosis or regurgitation. Electronically signed by : Cheryl Cardona MD 09/28/2023 21:14:14
== END 2023-09-27 23:59 ==
LOC: RT 07:32
PROVIDERS: PCP Family Medicine; Visit Provider Family Medicine
DX: I48.91 Unspecified atrial fibrillation (principal); I25.10 Atherosclerotic heart disease of native coronary artery without angina pectoris
CPT/HCPCS: 93306

== ENCOUNTER 2023-10-05 06:00 | Outpatient (CLI) | payer MEDICARE, MEDICAID, SELFPAY ==
--- NOTE | 2023-10-05 | CA_ITS ---
APPROVED REPORT Exam: Pharmacologic Technologist: Marcy Carr, Ht: 6 ft 5 in Wt: 390 lbs BSA: 2.97 m2 HR: 85 bpm BP: 147/93 mmHg Rhythm: AFIB, CONTROLLED RATE, INDETERMINATE AXIS, CANNOT R/O OLD ANTERIOR NE LOW VOLTAGE QRS Medical History Medical History: HTN, Diabetes Medications: Cephalexin,,,,, Gabapentin,,,,, Pantoprazole,,,,, Atorvastatin,,,,, CloPIdogrel,,,,, Levocetirizine,,,,, SilDENAFIL,,,,, SpirOnALACTONE,,,,, RIvaROXABAN,,,,, NeBivolol,,,,, SeMaglutide,,,,, Hydrocodone-Acetaminohen,,,,, Allergies: PENICILLIN Cardiac Risk Factors: HTN, Diabetes Stress Test Details Test: LEXISCAN HR Resting HR: 83 bpm Max Heart Rate (APMHR): 166 bpm Max HR Achieved: 113 bpm Target HR (85% APMHR): 141 bpm % of APMHR: 68 Recovery HR: 82 bpm BP Resting BP: 147/93 mmHg Max BP: 148/79 mmHg Recovery BP: 142.0/84.0 mmHg ECG Resting ECG: AFIB, CONTROLLED RATE, INDETERMINATE AXIS, CANNOT R/O OLD ANTERIOR NE LOW VOLTAGE QRS Stress ECG: NO SIGNIFICANT ST CHANGES Arrhythmia: NONE Clinical Exercise duration: 04:03 min Highest Stage Achieved: Exercise capacity: 1.0 METs Stress ECG Conclusion PT HAD SOA, AND HEAD DISCOMFORT NO CP OCC PVC VS ABERRANTLY CONDUCTED BEAT NO SIGNIFICANT ST CHANGES UNREMARKABLE LEXISCAN STRESS MYOVIEW IMAGES REPORTED SEPARATELY Test Summary REST 08:03 . . 83 . 147/ 93 . . Stage 1 01:00 . . 87 . . . . Stage 2 01:00 . . 100 . 140/ 96 . . Stage 3 01:00 . . 84 . 135/ 89 . . Stage 4 01:00 . . 89 . 148/ 79 . . Stage 4 01:03 . . 94 . 148/ 79 . Stop exercise at 04:03 RECOVERY 01:00 . . 96 . . . . RECOVERY 02:00 . . 82 . 140/ 88 . . RECOVERY 03:00 . . 78 . 142/ 84 . . RECOVERY 03:17 . . 94 . 142/ 84 . . Electronically signed by : Cheryl Cardona MD 10/05/2023 21:32:22
--- NOTE | 2023-10-05 06:05 | NM_ITS ---
APPROVED REPORT Exam: Nuclear Stress Test Indication: CAD, OBESITY, DM, HYPERLIPIDEMIA, FM HX, C.P., SOB, PALPITATIONS, FATIGUE Patient Location: Outpatient Stress Tech: Marcy Acrr [place] Tech:Kaitlynn YoungKIMBERLY RT (R)(N)(M) Ht: 6 ft 6 in Wt: 375 lbs HR: 85 bpm BP: 147/93 mmHg BSA: 2.95 m2 Rhythm: Atrial Fibrillation TID: 1.13 BMI: 43.3 History: CAD, DM, HYPERLIPIDEMIA, FM HX, C.P., SOB, PALPITATIONS, FATIGUE PT COULD NOT LAY ON STOMACH FOR PRONE IMAGES Procedure: Patient received 0.4 mg of intravenous Lexiscan, resting heart rate 85 bpm, resting blood pressure 147/93 mmHg, with Lexiscan maximum heart rate achieved was 100 bpm which is % of the maximum predicted heart rate and blood pressure was 140/96 mmHg. With Lexiscan, patient denied any complaint of chest pain. Cardiac Stress and Resting SPECT Images: Cardiac Stress and Resting SPECT images were obtained using technetium 99m Myoview 30.7 mCi stress and 10.30 mCi at rest. The patient could not lie on his abdomen. Therefore, prone stress imaging could not be performed. This may affect the diagnostic interpretation of the study findings. Resting and stress imaging and supine positions demonstrate no definite evidence of fixed or reversible perfusion defects. Gated imagingis inaccurate due to technical difficulty in the setting of underlying atrial fibrillation. Conclusion: No definite evidence of fixed or reversible perfusion defects. Gated imaging is inaccurate due to technical difficulty in the setting of underlying atrial fibrillation. Electronically signed by : Cheryl Cardona MD 10/05/2023 21:40:44
[2023-10-05] MEDS: SODIUM CHLORIDE 0.9% 10ML SYR (RAD ONLY) 10 ML IV ×2 (06:30→08:15)
[2023-10-05] MEDS: REGADENOSON 0.4MG/5ML SYRINGE 0.400000000000000022 MG IV (08:15)
[2023-10-05] MEDS: ISOTOPE MYOVIEW (PER STUDY) 1 DOSE IV (09:07)
== END 2023-10-05 23:59 ==
LOC: RAD 06:01
PROVIDERS: PCP Family Medicine; Visit Provider Physician Assistant
DX: R06.00 Dyspnea, unspecified (principal); R07.9 Chest pain, unspecified; I25.10 Atherosclerotic heart disease of native coronary artery without angina pectoris; R94.31 Abnormal electrocardiogram [ECG] [EKG]
CPT/HCPCS: 78452; 93017; 93018; A9502; J2785

== ENCOUNTER 2023-12-07 10:53 | Outpatient (CLI) | payer MEDICARE, MEDICAID, SELFPAY ==
[2023-12-07 19:44] LABS: Hemoglobin A1C 5.8 % (4.0-6.0)
[2023-12-07 20:04] LABS: Alanine Aminotransferase 27 U/L (12-78); Albumin Level 3.7 g/dl (3.5-5.0); Albumin/Globulin Ratio 1.1 (1.1-1.8); Alkaline Phosphatase 82 U/L (38-126); Anion Gap 14.4 mEq/L (5-15); Aspartate Amino Transferase 33 U/L (17-59); Blood Urea Nitrogen 14 mg/dl (9-20); Carbon Dioxide 22 mmol/L (22.0-30.0); Chloride 106 mmol/L (98-107); Chol/HDL Ratio 3.9 (1-3.5); Cholesterol 134 mg/dl (140-200); Estimated Glomerular Filt Rate 88 ml/min (>60); GFR (African American) 106 ML/MIN (>60); Globulin 3.5 g/dL (1.3-3.2); Glucose 111 mg/dl (74-100); HDL Cholesterol 34 mg/dl (40-60); Potassium 4.4 mmoL/L (3.5-5.1); Sodium 138 mmol/L (136-145); Total Protein,Serum 7.2 g/dl (6.3-8.2); Triglycerides 108 mg/dl (30-150); VLDL Cholesterol 22 mg/dL (0-40)
[2023-12-07 20:34] LABS: Prostate Specific Ag Screen 0.4 ng/ml (0.0-4.0)
[2023-12-07 20:52] LABS: Direct LDL Cholesterol 84.93 mg/dL (100-129)
== END 2023-12-07 23:59 | disposition home or self-care (01) ==
LOC: LAB.DROPOF 12-08 10:53
PROVIDERS: PCP Family Medicine; Visit Provider Family Medicine
DX: I50.9 Heart failure, unspecified (principal); E11.9 Type 2 diabetes mellitus without complications; Z12.5 Encounter for screening for malignant neoplasm of prostate
CPT/HCPCS: 80053; 80061; 83036; G0103

== ENCOUNTER 2024-04-26 06:40 | Outpatient (CLI) | payer MEDICARE, MEDICAID, SELFPAY ==
--- NOTE | 2024-04-26 07:31 | MR_ITS ---
FINAL REPORT CLINICAL HISTORY: Head trauma w/ residual symptoms x6 weeks ago. headache, dizziness and blurred vision since COMPARISON: None FINDINGS: Multiplanar MR imaging of the brain was performed without and with contrast. There is mild age-appropriate atrophy. Scattered foci of increased T2 signal are seen in the cerebral white matter that have a nonspecific appearance, many of which are periventricular in location and perpendicular to the lateral ventricles. These may represent foci of multiple sclerosis or chronic ischemic microvascular disease. There is no evidence of intracranial hemorrhage or mass. No abnormal ventricular dilatation is identified. There is no evidence of shift of the midline structures. No abnormal extra-axial fluid collection is seen. No area of abnormal restricted diffusion is identified. The posterior fossa and brainstem have an unremarkable appearance. No abnormal contrast enhancement is seen. Normal major vessel vascular flow voids are seen. IMPRESSION: Mild atrophy and increased signal in the periventricular white matter, oriented perpendicular to the axis of the ventricles, that may represent demyelination secondary to a demyelinating process such as multiple sclerosis or chronic ischemic microvascular disease. No enhancement is noted after contrast administration. No acute intracranial abnormality. Reviewed, Interpreted and Dictated by Tuan Lin III, MD Transcribed by Mackenzie Huggins Authenticated and [facility]
[2024-04-26 08:09] LABS: Chloride 106 mmol/L (98-107); Potassium 4.6 mmoL/L (3.5-5.1); Sodium 137 mmol/L (136-145)
[2024-04-26 08:12] LABS: Alanine Aminotransferase 28 U/L (12-78); Albumin/Globulin Ratio 1.3 (1.1-1.8); Alkaline Phosphatase 83 U/L (38-126); Anion Gap 13.6 mEq/L (5-15); Aspartate Amino Transferase 33 U/L (17-59); Bilirubin,Total 0.9 mg/dl (0.2-1.3); Blood Urea Nitrogen 16 mg/dl (9-20); Calcium 9.4 mg/dl (8.4-10.2); Carbon Dioxide 22 mmol/L (22.0-30.0); Estimated Glomerular Filt Rate 100 ml/min (>60); GFR (African American) 121 ML/MIN (>60); Globulin 3.1 g/dL (1.3-3.2); Glucose 141 mg/dl (74-100); Total Protein,Serum 7.1 g/dl (6.3-8.2)
[2024-04-26] MEDS: GADOTERIDOL INJ 10ML SYRINGE 9 ML IV (08:35)
[2024-04-26] MEDS: SODIUM CHLORIDE 0.9% 10ML SYR (RAD ONLY) 10 ML IV (08:35)
[2024-04-26] MEDS: GADOTERIDOL INJ 20ML SYRINGE 20 ML IV (08:35)
== END 2024-04-26 23:59 | disposition home or self-care (01) ==
LOC: LAB 06:41
PROVIDERS: PCP Family Medicine; Visit Provider Family Medicine
DX: I50.9 Heart failure, unspecified (principal); I25.10 Atherosclerotic heart disease of native coronary artery without angina pectoris; I10 Essential (primary) hypertension; E11.59 Type 2 diabetes mellitus with other circulatory complications; Z71.89 Other specified counseling; S06.0XAA Concussion with loss of consciousness status unknown, initial encounter
CPT/HCPCS: 36415; 70553; 80053; A9576

== ENCOUNTER 2024-05-09 08:42 | Emergency (ER) | payer MEDICARE, MEDICAID, SELFPAY ==
[2024-05-09 08:43] VITALS: BP 171/97; PULSE 85; RESP 13; TEMP 36.8; O2SAT 98; BMI 42.7
[2024-05-09 09:00] VITALS: BP 149/102; PULSE 101; O2SAT 98
--- NOTE | 2024-05-09 09:04 | HMH.EDGENADL ---
Discharge Plan Disposition Patient Disposition: Home, Self-Care Condition: Good Prescriptions Prescriptions: New metoclopramide HCl [Reglan] 10 mg tablet 10 mg PO Q6H PRN (Reason: nausea and vomiting) Qty: 14 0RF No Action pantoprazole [Protonix] 40 mg tablet,delayed release (DR/EC) 40 mg PO DAILY Qty: 90 3RF diltiazem HCl 360 mg capsule,extended release 24hr 360 mg PO DAILY Qty: 90 3RF propafenone 225 mg capsule,extended release 12 hr 225 mg PO Q12H Qty: 60 2RF fluoxetine [Prozac] 20 mg capsule 20 mg PO DAILY Qty: 90 3RF trazodone 150 mg tablet 150 mg PO HS PRN (Reason: sleep) Qty: 90 3RF hydrocodone-acetaminophen 10-325 mg tablet 1 tab PO Q8H PRN lidocaine 5 % adhesive patch,medicated 1 patch topical DAILY Qty: 30 10RF Rx Instructions: leave on most painful area for up to 12 hrs sildenafil 100 mg tablet 100 mg PO DAILY PRN (Reason: sexual activity) Qty: 10 10RF Rx Instructions: administer 30 minutes to 4 hours before activity nebivolol [Bystolic] 20 mg tablet 40 mg PO DAILY 90 Days Qty: 180 3RF furosemide 40 mg tablet See Rx Instructions .ROUTE .COMPLEX Qty: 90 1RF Dose Instruction: TAKE 1 TABLET BY MOUTH ONCE DAILY Rx Instructions: TAKE 1 TABLET BY MOUTH ONCE DAILY lisinopril 40 mg tablet See Rx Instructions .ROUTE .COMPLEX Qty: 90 2RF Dose Instruction: TAKE 1 TABLET BY MOUTH ONCE DAILY Rx Instructions: TAKE 1 TABLET BY MOUTH ONCE DAILY Xarelto 20 mg tablet See Rx Instructions .ROUTE .COMPLEX Qty: 90 4RF Dose Instruction: TAKE 1 TABLET BY MOUTH ONCE DAILY Rx Instructions: TAKE 1 TABLET BY MOUTH ONCE DAILY prochlorperazine maleate [Compazine] 10 mg tablet 10 mg PO Q6H PRN (Reason: nausea and vomiting) Qty: 60 3RF gabapentin 800 mg tablet 800 mg PO TID PRN (Reason: Pain) Qty: 90 3RF atorvastatin 20 mg tablet See Rx Instructions .ROUTE .COMPLEX Qty: 90 1RF Dose Instruction: TAKE 1 TABLET BY MOUTH ONCE DAILY Rx Instructions: TAKE 1 TABLET BY MOUTH ONCE DAILY spironolactone 25 mg tablet See Rx Instructions .ROUTE .COMPLEX Qty: 90 1RF Dose Instruction: TAKE 1 TABLET BY MOUTH ONCE DAILY Rx Instructions: TAKE 1 TABLET BY MOUTH ONCE DAILY clopidogrel [Plavix] 75 mg tablet 75 mg PO DAILY Qty: 90 3RF Ozempic 0.25 mg or 0.5 mg (2 mg/3 mL) pen injector 0.5 mg SQ WEEKLY 30 Days Qty: 3.68 1RF levocetirizine [Xyzal] 5 mg tablet 5 mg PO DAILY Qty: 30 2RF Referrals Follow up/Referrals: Elise Gomez MD [Staff Physician] - See instructions Paco Womack MD [Primary Care Provider] - See instructions Activity Restrictions/Add. Instructions Additional Instructions/Restrictions: You were evaluated in the emergency department today. I sent in a prescription for Reglan, which is a nausea medication that can sometimes help with headaches. I recommend reaching out to Dr. Womack to see about the status of the referral to neurology. Return to the emergency department for new or worsening symptoms Clinical Impressions Clinical Impression: Chronic post-concussion headache Stand Alone Forms Stand Alone Forms: Work/School Release Instructions Patient Instructions: DI for Concussion, DI for Postconcussion Syndrome, DI for Headache Print Language Print Language: Citizen Of [place] Discharge ED Provider: Myesha Herring General Adult HPI General Chief complaint: Headache Stated complaint: AO 8 weeks ago, concussion, pain, head,shoulders,a Time Seen by Provider: 05/09/24 08:49 Mode of Arrival: Ambulatory Source of Information: Patient Limitations: No Limitations Description of Symptoms (Recalled from ER Triage Doc. by RN): pt presents to ED with c/o headache ongoing since tuesday. pt reports he has been treated for concussion by pcp dr womack. pt reports that 8-9 weeks ago he was hit in the head with a large dump truck part. pt reports headache intermittent since the accident, but this headache is different in the fact that it has not gone away. History of Present Illness HPI narrative: This patient is a 54-year-old male with a history of CAD, JOSE ALEJANDRO, cardiomegaly, hypertension, CHF, and atrial fibrillation on Xarelto who presented to the emergency department for evaluation with concern for headache. Patient reports that around 8 or 9 weeks ago, he was struck in the head by a piece of very heavy equipment while at work. He did not lose consciousness but states that he was briefly paralyzed on the ground after being hit in the head. Since then, he is dealt with intermittent headaches. He has been worked up by his primary care provider and has been seen multiple times for this. He has had a CT scan of his head as well as an MRI of his head to work this up and he is awaiting outpatient neurology referral. On medical record review, it looks like he presented with classic and concussion symptoms but given the persistence of headaches, MRI was obtained 04/26/2024. It demonstrated some microvascular white matter changes versus MS, and his brother does have a history of MS. He given this, his primary care provider is referring him to neurology. He does not yet have an appointment scheduled. He states that the headache is in the front of his head which is where he got hit. He states that it intermittently is accompanied by visual disturbances such as blurry vision and tunnel vision, but no persistent visual changes. He notes photophobia. He has tried aspirin at home without good improvement. he came in today because the headache is been persistent since Tuesday as opposed to waxing waning like it previously had been. Nothing seems to make it better or worse. No numbness, tingling, unilateral weakness, or other concerns. No fevers or infectious symptoms noted. Related Data Home Medications ?Medication ?Instructions ?Recorded ?Confirmed hydrocodone 10 mg-acetaminophen 1 tab PO Q8H PRN 05/02/24 05/02/24 325 mg tablet Previous Rx's ?Medication ?Instructions ?Recorded furosemide 40 mg tablet See Rx Instructions .Route 03/11/23 .COMPLEX #90 tabs lidocaine 5 % topical patch 1 patch topical DAILY Pain #30 ea 04/29/23 lisinopril 40 mg tablet See Rx Instructions .Route 05/26/23 .COMPLEX #90 tabs pantoprazole 40 mg tablet,delayed 40 mg PO DAILY #90 tabs 05/26/23 release (Protonix) rivaroxaban 20 mg tablet (Xarelto) See Rx Instructions .Route 06/06/23 .COMPLEX #90 tabs prochlorperazine maleate 10 mg 10 mg PO Q6H PRN nausea and 07/15/23 tablet (Compazine) vomiting #60 tabs sildenafil 100 mg tablet 100 mg PO DAILY PRN sexual 07/29/23 activity #10 tabs diltiazem HCl 360 mg 360 mg PO DAILY #90 caps 08/26/23 capsule,extended release 24 hr nebivolol 20 mg tablet (Bystolic) 40 mg (2 x 20 mg) PO DAILY 90 days 09/21/23 #180 tabs propafenone 225 mg 225 mg PO Q12H #60 caps 10/12/23 capsule,extended release 12 hr gabapentin 800 mg tablet 800 mg PO TID PRN Pain #90 tabs 10/28/23 fluoxetine 20 mg capsule (Prozac) 20 mg PO DAILY #90 caps 12/07/23 trazodone 150 mg tablet 150 mg PO HS PRN sleep #90 tabs 12/07/23 atorvastatin 20 mg tablet See Rx Instructions .Route 01/24/24 .COMPLEX #90 tabs clopidogrel 75 mg tablet (Plavix) 75 mg PO DAILY Blood thinner #90 01/24/24 tabs spironolactone 25 mg tablet See Rx Instructions .Route 01/24/24 .COMPLEX #90 tabs levocetirizine 5 mg tablet (Xyzal) 5 mg PO DAILY ALLERGIES #30 tabs 04/26/24 semaglutide 0.25 mg or 0.5 mg (2 0.5 mg (0.736 mL) SQ WEEKLY 30 04/26/24 mg/3 mL) subcutaneous pen injector days #3.68 mL (Ozempic) metoclopramide HCl 10 mg tablet 10 mg PO Q6H PRN nausea and 05/09/24 (Reglan) vomiting #14 tabs Allergies Allergy/AdvReac Type Severity Reaction Status Date / Time Penicillins AdvReac swelling Verified 05/02/24 08:23 [facility] Disclaimer: The information contained in this section may have been updated after the patient was seen, as this information can be updated by other users. Medical History Chest pain Dyspnea JOSE ALEJANDRO (obstructive sleep apnea) Snoring Daytime somnolence Cardiomegaly Varicose vein of leg Diabetes mellitus Osteoarthritis Primary hypertension CAD (coronary artery disease), [place] coronary artery CHF (congestive heart failure) Surgical History History of cardiac cath Family History Other No significant family history Social History Smoking Status: Never smoker alcohol intake: former substance use type: denies use current occupational status: other Travel in the last 8 weeks: None Other Medical History Have you received the Flu Vaccine for this season: Yes Have you received the Pneumonia Vaccine: No ROS Obtained: Yes All systems reviewed & no additional complaints except as documented Physical Exam General General appearance: alert, in no apparent distress and obese Head Head exam: atraumatic and normocephalic Eye Eye exam: Present normal appearance, PERRL and EOMI ENT ENT exam: Present normal exam, normal oropharynx, mucous membranes moist and normal external ear exam Neck Neck exam: Present normal inspection, full ROM and trachea midline; Absent tenderness Chest Chest inspection: Present normal inspection and symmetric chest wall rise; Absent tenderness Respiratory Respiratory exam: Present normal lung sounds bilaterally; Absent respiratory distress, wheezes, stridor or accessory muscle use Cardiovascular Cardiovascular exam: Present regular rate and normal rhythm Abdominal Exam Abdominal exam: Present soft; Absent distention, tenderness or guarding Extremities Exam Extremities exam: Present normal inspection, full ROM and normal capillary refill; Absent tenderness or edema Back Exam Back exam: Present normal inspection and full ROM; Absent tenderness Neurological Exam Neurological exam: Present alert, oriented X3, CN II-XII intact and normal gait; Absent motor sensory deficit Psychiatric Psychiatric exam: Present normal affect and normal mood Skin Skin exam: Present warm and dry Medical Decision Making Medical Records Medical records reviewed: Yes I reviewed the patient's medical records. Screening: Per USPSTF and CDC recommendations, given the prevalence of disease in our region, it is our hospital?s policy to screen for HIV and viral Hepatitis for all patients aged 18 and over and those with ongoing risk factors. Todd Inquiry Pt receiving controlled substance: No Vital Signs: 05/09/24 08:43 05/09/24 09:00 05/09/24 09:30 Temperature 98.2 F Temperature Source Oral Pulse Rate 101 H 86 Pulse Rate [Left Radial] 85 Respiratory Rate 13 Blood Pressure 149/102 H 140/102 H Blood Pressure [Right Arm] 171/97 H Blood Pressure Mean [Right Arm] 121 02 Sat by Pulse Oximetry 98 98 98 Oxygen Delivery Method Room Air Lab Data Lab results reviewed: Yes I reviewed the patient's lab results. Lab Results 05/09/24 09:08: WBC 8.6, RBC 5.05, Hgb 15.4, Hct 46.0, MCV 91.0, MCH 30.4, MCHC 33.5, RDW 14.1, Plt Count 194, MPV 8.7, Neut % (Auto) 69.2, Lymph % (Auto) 23.2, Branch % (Auto) 5.4, Eos % (Auto) 1.4, Baso % (Auto) 0.8, Neut # (Auto) 6.0, Lymph # (Auto) 2.0, Branch # (Auto) 0.5, Eos # (Auto) 0.1, Baso # (Auto) 0.1, Sodium 135 L, Potassium 4.3, Chloride 103, Carbon Dioxide 24, Anion Gap 12.3, BUN 15, Creatinine 0.80, Estimated Creat Clear 135, Estimated GFR 100, Est GFR ( Amer) 121, Glucose 131 H, Calcium 9.4, Total Bilirubin 1.1, AST 36, ALT 28, Alkaline Phosphatase 74, Total Protein 7.6, Albumin 4.1, Globulin 3.5 H, Albumin/Globulin Ratio 1.2 05/09/24 09:08 05/09/24 09:08 Orders (Tests/Meds): ED MEDICATIONS Discontinued Medications Generic Name Dose Route Start Last Admin Trade Name Freq PRN Reason Stop Dose Admin Acetaminophen 1,000 mg 05/09/24 09:02 05/09/24 09:28 Acetaminophen 500mg Tab PO 05/09/24 09:03 1,000 mg ONCE ONE Administration Dexamethasone Sodium Phosphate 10 mg 05/09/24 09:03 05/09/24 09:28 Dexamethasone 4mg/Ml 1ml Vial IV 05/09/24 09:04 10 mg ONCE ONE Administration Diphenhydramine HCl 25 mg 05/09/24 09:02 05/09/24 09:28 Diphenhydramine 50mg/Ml Vial IV 05/09/24 09:03 25 mg ONCE ONE Administration Magnesium Sulfate 2 gm in 50 mls @ 50 mls/hr 05/09/24 09:02 05/09/24 09:28 Magnesium Sulfate 2gm/50ml Premix IV 05/09/24 10:01 50 mls/hr ONCE ONE Administration Ketorolac Tromethamine 15 mg 05/09/24 09:02 05/09/24 09:28 Ketorolac 30mg/Ml Vial IV 05/09/24 09:03 15 mg ONCE ONE Administration Metoclopramide HCl 10 mg 05/09/24 09:02 05/09/24 09:28 Metoclopramide Hcl 10mg/2ml Vial IVP 05/09/24 09:03 10 mg ONCE ONE Administration ORDERS Category Date Time Status Complete Blood Count Auto Diff Stat Lab 05/09/24 09:08 Completed Comprehensive Metabolic Panel Stat Lab 05/09/24 09:08 Completed HIV (1&2) Antibody Rapid Stat Lab 05/09/24 09:08 Received Hep C Ab with Reflex to RNA Stat Lab 05/09/24 09:08 Received Medical Decision Narrative: In summary, this patient is a 54-year-old male presenting to the Emergency Department for evaluation of headache. Differential diagnoses considered include but are not limited to postconcussive syndrome, migraine, tension headache, rebound headache. Considered diagnosis of meningitis/encephalitis, however given chronicity of symptoms and lack of infectious symptoms, that makes these less likely. Ruling out the most morbid conditions drove assessment. It should be noted patient's history includes obesity and extensive cardiovascular history which may or may not be at goal therapy. This complicates all aspects of care by increasing patient's risk for morbidity. I reviewed patient's past medical records and noted previous PCP evaluations for headaches as well as his previous brain MRI detailed in HPI. Please see [facility] for further documentation. On exam, the patient is sitting upright in a chair in no acute distress. He is neurologically intact without focal deficits. Workup included CBC and CMP. I considered obtaining CT scan of the head to further assess to make sure there were no changes from recent MRI, however patient wants to defer this at this time as he does not feel that it would likely exchange clerk since his headache has not significant changed since having the MRI. He would like to try migraine cocktail and see if it helps with his symptoms after shared decision making. On reassessment, the patient is resting comfortably and remains neurologically intact. He did get symptomatic improvement in his headache after administration of interventions above. He notes his headache resolved. Given this, imaging deferred and he was discharged home with instructions for very close follow-up with his primary care provider, neurology, and very strict return precautions. He expressed understanding and agreement. He was discharged in stable condition. Critical Care Critical Care Time Critical Care Time: No
[2024-05-09 09:20] LABS: Basophils # 0.1 K/mm3 (0-0.2); Basophils % 0.8 % (0.1-2.0); Eosinophils # 0.1 K/mm3 (0.0-0.4); Eosinophils % 1.4 % (0.1-12.0); Hemoglobin 15.4 g/dL (14.1-18.0); Lymphocytes % 23.2 % (10-50); Mean Corpuscular HGB Conc 33.5 g/dL (31.8-35.4); Mean Corpuscular Hemoglobin 30.4 pg (27.0-31.2); Mean Platelet Volume 8.7 fl (7.4-10.4); Monocytes # 0.5 K/mm3 (0.1-1.0); Monocytes % 5.4 % (1.7-9.3); Neutrophils % 69.2 % (37.0-80.0); Platelet Count 194 K/mm3 (142-424); Red Blood Count 5.05 M/mm3 (4.60-6.20); Red Cell Distribution Width 14.1 % (11.5-17.5); White Blood Count 8.6 K/mm3 (4.8-10.8)
[2024-05-09 09:23] LABS: Albumin Level 4.1 g/dl (3.5-5.0); Chloride 103 mmol/L (98-107); Potassium 4.3 mmoL/L (3.5-5.1); Sodium 135 mmol/L (136-145)
[2024-05-09 09:26] LABS: Alanine Aminotransferase 28 U/L (12-78); Albumin/Globulin Ratio 1.2 (1.1-1.8); Alkaline Phosphatase 74 U/L (38-126); Anion Gap 12.3 mEq/L (5-15); Aspartate Amino Transferase 36 U/L (17-59); Bilirubin,Total 1.1 mg/dl (0.2-1.3); Blood Urea Nitrogen 15 mg/dl (9-20); Calcium 9.4 mg/dl (8.4-10.2); Carbon Dioxide 24 mmol/L (22.0-30.0); Creatinine Clearance Estimated 135 mL/min (50-200); Estimated Glomerular Filt Rate 100 ml/min (>60); GFR (African American) 121 ML/MIN (>60); Globulin 3.5 g/dL (1.3-3.2); Glucose 131 mg/dl (74-100); Total Protein,Serum 7.6 g/dl (6.3-8.2)
[2024-05-09] MEDS: MAGNESIUM SULFATE IN WATER 2 GM/50 ML PIGGYBACK IV (09:28)
[2024-05-09] MEDS: DEXAMETHASONE 4MG/ML 1ML VIAL 10 MG IV (09:28)
[2024-05-09] MEDS: diphenhydrAMINE 50MG/ML VIAL 25 MG IV (09:28)
[2024-05-09] MEDS: KETOROLAC 30MG/ML VIAL 15 MG IV (09:28)
[2024-05-09] MEDS: ACETAMINOPHEN 500MG TAB 1000 MG PO (09:28)
[2024-05-09] MEDS: METOCLOPRAMIDE HCL 10MG/2ML VIAL 10 MG IVP (09:28)
[2024-05-09 09:30] VITALS: BP 140/102; PULSE 86; O2SAT 98
--- NOTE | 2024-05-09 09:55 | PC.NURSE ---
Patient sitting at bedside. States headache is better. No needs or concerns at this time.
[2024-05-09 10:32] VITALS: BP 135/87; PULSE 85; RESP 16; TEMP 36.8; O2SAT 97
[2024-05-09 11:10] LABS: HIV (1&2) Antibody Rapid NONREACTIVE (NONREACTIVE)
[2024-05-10 09:33] LABS: HCV Ab Non Reactive (Non Reactive)
== END 2024-05-09 10:32 | disposition home or self-care (01) ==
PROVIDERS: Emergency Provider Emergency Medicine; PCP Family Medicine
DX: G44.329 Chronic post-traumatic headache, not intractable; H53.8 Other visual disturbances; H53.40 Unspecified visual field defects; H53.149 Visual discomfort, unspecified
CPT/HCPCS: 80053; 85025; 86803; 87389; 96365; 96374; 96375; 99283; J1100; J1200; J1885; J2765; J3475

== ENCOUNTER 2024-10-03 09:33 | Emergency (ER) | payer MEDICARE, MEDICAID, SELFPAY ==
[2024-10-03 09:39] VITALS: BP 132/97; PULSE 108; O2SAT 98
[2024-10-03 09:51] VITALS: BP 132/97; PULSE 90; RESP 20; TEMP 36.9; O2SAT 98; BMI 43.3
[2024-10-03 10:00] VITALS: BP 144/83; PULSE 107; O2SAT 97
--- NOTE | 2024-10-03 10:26 | PC.NURSE ---
DR KAY AT BEDSIDE
[2024-10-03 10:30] VITALS: BP 128/90; PULSE 106; O2SAT 97
[2024-10-03] MEDS: ACETAMINOPHEN 500MG TAB 1000 MG PO (10:36)
[2024-10-03] MEDS: diphenhydrAMINE 50MG/ML VIAL 25 MG IV (10:36)
[2024-10-03] MEDS: MAGNESIUM SULFATE IN WATER 2 GM/50 ML PIGGYBACK IV (10:37)
[2024-10-03] MEDS: droPERidol 5MG/2ML VIAL 2.5 MG IV (10:37)
--- NOTE | 2024-10-03 10:39 | ECG_ITS ---
APPROVED REPORT Exam: Resting ECG HR:88 bpm ECG Measurements Heart Rate 88 AXES QRSd 106 QRS -41 QT 351 T 8 QTc 397 Conclusion ATRIAL FIBRILLATION LEFT AXIS DEVIATION [QRS AXIS < -30] LOW QRS VOLTAGE IN PRECORDIAL LEADS [QRS DEFLECTION < 1.0 mV IN CHEST LEADS] INCOMPLETE RIGHT BUNDLE BRANCH BLOCK [90+ ms QRS DURATION, TERMINAL R IN V1/V2, 40+ ms S IN I/aVL/V4/V5/V6] POSSIBLE ANTERIOR MYOCARDIAL INFARCTION , PROBABLY OLD [30 ms Q WAVE IN V3/V4, OR R < 0.2 mV IN V4] ABNORMAL ECG UNCONFIRMED REPORT A-fib with ventricular rate of [address] elevation or depression. Electronically signed by : BECKY KAY, 10/03/2024 16:32:08
[2024-10-03 11:00] VITALS: BP 109/82; PULSE 86; RESP 12; O2SAT 96
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
[2024-10-03 11:46] VITALS: BP 117/69; PULSE 92; RESP 14; TEMP 36.8; O2SAT 97
== END 2024-10-03 11:47 | disposition home or self-care (01) ==
PROVIDERS: Emergency Provider Student in an Organized Health Care Education/Training Program; PCP Family Medicine
DX: R51.9 Headache, unspecified (principal); W22.8XXA Striking against or struck by other objects, initial encounter; Y93.9 Activity, unspecified; Y92.9 Unspecified place or not applicable
CPT/HCPCS: 93005; 96365; 96374; 96375; 99283; J1200; J1790; J3475

== ENCOUNTER 2024-11-02 13:35 | Emergency (ER) | payer MEDICARE, MEDICAID, SELFPAY ==
--- NOTE | 2024-11-02 13:43 | ECG_ITS ---
APPROVED REPORT Exam: Resting ECG HR:87 bpm ECG Measurements Heart Rate 87 AXES QRSd 104 QRS -46 QT 351 T 13 QTc 395 Conclusion ATRIAL FIBRILLATION LOW QRS VOLTAGE IN PRECORDIAL LEADS [QRS DEFLECTION < 1.0 mV IN CHEST LEADS] POSSIBLE ANTERIOR MYOCARDIAL INFARCTION , PROBABLY OLD [30 ms Q WAVE IN V3/V4, OR R < 0.2 mV IN V4] INFERIOR MYOCARDIAL INFARCTION , PROBABLY OLD [40+ ms Q WAVE AND/OR ST/T ABNORMALITY IN II/aVF] ABNORMAL ECG Electronically signed by : POLO MONAE, 11/06/2024 22:25:09
--- NOTE | 2024-11-02 13:47 | CT_ITS ---
FINAL REPORT TECHNIQUE: Axial images were obtained of the cervical spine by computed tomography. Coronal and sagittal reconstruction process performed. This study was performed with techniques to keep radiation doses as low as reasonably achievable (ALARA). Individualized dose reduction techniques using automated exposure control or adjustment of mA and/or kV according to the patient's size were employed. CLINICAL HISTORY: fell, struck head on AC COMPARISON: None FINDINGS: CT CERVICAL SPINE: Cervical vertebrae show normal height. There is mild reversal of the normal cervical lordosis. Disc spaces are well-preserved. At the C5-6 level, there is a mild annular bulge with mild bilateral neural foraminal narrowing. There is no malalignment. The facets are properly aligned. There is a well-corticated ossific density at the superior margin of the dens, that may represent an ununited ossicle, less likely the sequela of prior trauma. IMPRESSION: No acute bony abnormality is identified. Reviewed, Interpreted and Dictated by Alireza Gambino MD Transcribed by Mackenzie Huggins Authenticated and [facility]
--- NOTE | 2024-11-02 13:47 | CT_ITS ---
FINAL REPORT TECHNIQUE: Axial CT images were performed through the head. Coronal and sagittal reformatted images were submitted. This study was performed with techniques to keep radiation doses as low as reasonably achievable (ALARA). Individualized dose reduction techniques using automated exposure control or adjustment of mA and/or kV according to the patient's size were employed. CLINICAL HISTORY: fall struck head on AC COMPARISON: None FINDINGS: CT HEAD: The ventricles are normal in size. There is no evidence of hemorrhage. There is no mass or edema identified. There is no abnormal extra-axial fluid seen. There is mild mucoperiosteal thickening in the maxillary sinuses bilaterally. IMPRESSION: No acute intracranial process. Reviewed, Interpreted and Dictated by Alireza Gambino MD Transcribed by Mackenzie Huggins Authenticated and [facility]
[2024-11-02 13:54] VITALS: BP 161/90; PULSE 81; RESP 16; TEMP 36.8; O2SAT 98; BMI 43.3
[2024-11-02 14:01] VITALS: BP 131/87; PULSE 83; RESP 12; O2SAT 97
--- OUTSIDE RECORDS SUMMARY | 2024-11-02 14:01 | XMS_ITS ---
Author Organization Unknown TREATMENT PLAN [facility] Start Date Provider Encounter for Check-up [id number] [facility]
--- NOTE | 2024-11-02 14:53 | [facility].EDGENADL ---
Discharge Plan Disposition Patient Disposition: Home, Self-Care Condition: Good Prescriptions Prescriptions: No Action hydrocodone-acetaminophen 10-325 mg tablet 1 tab PO Q8H PRN sildenafil 100 mg tablet 100 mg PO DAILY PRN (Reason: sexual activity) Qty: 10 10RF Rx Instructions: administer 30 minutes to 4 hours before activity nebivolol [Bystolic] 20 mg tablet 40 mg PO DAILY 90 Days Qty: 180 3RF Qulipta 60 mg tablet 60 mg PO DAILY Qty: 30 2RF Ozempic 1 mg/dose (4 mg/3 mL) pen injector 1 mg SQ WEEKLY Qty: 3 5RF cephalexin 500 mg capsule 500 mg PO Q8H 10 Days Qty: 30 0RF promethazine 25 mg tablet 25 mg PO TID PRN (Reason: nausea and vomiting) Qty: 90 3RF furosemide 40 mg tablet See Rx Instructions .ROUTE .COMPLEX Qty: 90 1RF Dose Instruction: TAKE 1 TABLET BY MOUTH ONCE DAILY Rx Instructions: TAKE 1 TABLET BY MOUTH ONCE DAILY gabapentin 800 mg tablet 800 mg PO TID PRN (Reason: Pain) Qty: 90 3RF clopidogrel [Plavix] 75 mg tablet 75 mg PO DAILY Qty: 90 3RF Xarelto 20 mg tablet See Rx Instructions .ROUTE .COMPLEX Qty: 90 4RF Dose Instruction: TAKE 1 TABLET BY MOUTH ONCE DAILY Rx Instructions: TAKE 1 TABLET BY MOUTH ONCE DAILY lisinopril 40 mg tablet See Rx Instructions .ROUTE .COMPLEX Qty: 90 3RF Dose Instruction: TAKE 1 TABLET BY MOUTH ONCE DAILY Rx Instructions: TAKE 1 TABLET BY MOUTH ONCE DAILY lidocaine 5 % adhesive patch,medicated 1 patch topical DAILY Qty: 30 10RF Rx Instructions: leave on most painful area for up to 12 hrs atorvastatin 20 mg tablet See Rx Instructions .ROUTE .COMPLEX Qty: 90 1RF Dose Instruction: TAKE 1 TABLET BY MOUTH ONCE DAILY Rx Instructions: TAKE 1 TABLET BY MOUTH ONCE DAILY spironolactone 25 mg tablet See Rx Instructions .ROUTE .COMPLEX Qty: 90 1RF Dose Instruction: TAKE 1 TABLET BY MOUTH ONCE DAILY Rx Instructions: TAKE 1 TABLET BY MOUTH ONCE DAILY diltiazem HCl 360 mg capsule,extended release 24hr 360 mg PO DAILY Qty: 90 3RF levocetirizine [Xyzal] 5 mg tablet 5 mg PO DAILY Qty: 30 2RF Referrals Follow up/Referrals: Paco Garcia MD [Primary Care Provider] - See instructions Activity Restrictions/Add. Instructions Additional Instructions/Restrictions: You were evaluated in the emergency department today. Please follow-up closely with your primary care provider. Return to the emergency department for new or worsening symptoms. Clinical Impressions Clinical Impression: Fall, Traumatic hematoma of forehead Stand Alone Forms Stand Alone Forms: Work/School Release Instructions Patient Instructions: DI for Hematoma (Bruise) Print Language Print Language: Turkmen Discharge ED Provider: Myesha Herring General Adult HPI <Mandeep Luz MD - Last Filed: 11/02/24 14:59> General Chief complaint: Dizziness Stated complaint: AO 1230 dizzy hit face on bench Time Seen by Provider: 11/02/24 13:45 Mode of Arrival: Ambulatory Source of Information: Patient Description of Symptoms (Recalled from ER Triage Doc. by RN): Pt presents for evaluation of dizziness. Pt staets he was walking up some steps and he became dizzy causing him to fall and hit his head on a bench on the front porch. Pt denies LOC, pt is on xarelto. Has an abrasion to the left side of his head and a small skin tear to his left forearm. T-dap is not up to date History of Present Illness HPI narrative: Please note that above description of symptoms, in this electronic medical record under categorization of recalled from ER triage doctor by RN are reflective of an initial nursing assessment, however, is not reflective of my full history and physical exam that was personally taken and clarified. Consequentially, this preceding description of symptoms, which may include the patient's categorized chief complaint in the EMR, do not reflect my personal clinical impression, and the ultimate description of history of present illness and patient stated complaints should be deferred to this section of the note. Unless stated otherwise or congruent with this section of the note, additional signs, symptoms, or incongruence should be interpreted as inaccurate with my clinical impression. Related Data Home Medications ?Medication ?Instructions ?Recorded ?Confirmed hydrocodone 10 mg-acetaminophen 1 tab PO Q8H PRN 05/02/24 10/10/24 325 mg tablet Previous Rx's ?Medication ?Instructions ?Recorded furosemide 40 mg tablet See Rx Instructions .Route 03/11/23 .COMPLEX #90 tabs sildenafil 100 mg tablet 100 mg PO DAILY PRN sexual 07/29/23 activity #10 tabs nebivolol 20 mg tablet (Bystolic) 40 mg (2 x 20 mg) PO DAILY 90 days 09/21/23 #180 tabs gabapentin 800 mg tablet 800 mg PO TID PRN Pain #90 tabs 10/28/23 clopidogrel 75 mg tablet (Plavix) 75 mg PO DAILY Blood thinner #90 01/24/24 tabs rivaroxaban 20 mg tablet (Xarelto) See Rx Instructions .Route 06/21/24 .COMPLEX #90 tabs lidocaine 5 % topical patch 1 patch topical DAILY Pain #30 ea 07/27/24 lisinopril 40 mg tablet See Rx Instructions .Route 07/27/24 .COMPLEX #90 tabs atorvastatin 20 mg tablet See Rx Instructions .Route 08/01/24 .COMPLEX #90 tabs spironolactone 25 mg tablet See Rx Instructions .Route 08/01/24 .COMPLEX #90 tabs cephalexin 500 mg capsule 500 mg PO Q8H 10 days #30 caps 09/07/24 semaglutide 1 mg/dose (4 mg/3 mL) 1 mg (0.75 mL) SQ WEEKLY #3 mL 09/07/24 subcutaneous pen injector (OzBackblaze) diltiazem HCl 360 mg 360 mg PO DAILY #90 caps 09/17/24 capsule,extended release 24 hr levocetirizine 5 mg tablet (Xyzal) 5 mg PO DAILY ALLERGIES #30 tabs 09/17/24 atogepant 60 mg tablet (Qulipta) 60 mg PO DAILY headache #30 tabs 09/18/24 promethazine 25 mg tablet 25 mg PO TID PRN nausea and 10/10/24 vomiting #90 tabs Allergies Allergy/AdvReac Type Severity Reaction Status Date / Time Penicillins AdvReac swelling Verified 10/10/24 10:28 [facility] <Mandeep Luz MD - Last Filed: 11/02/24 14:59> [facility] Disclaimer: The information contained in this section may have been updated after the patient was seen, as this information can be updated by other users. Medical History Chronic post-concussion headache Arthritis Heart attack Migraine Chest pain Dyspnea JOSE ALEJANDRO (obstructive sleep apnea) Snoring Daytime somnolence Cardiomegaly Varicose vein of leg Diabetes mellitus Osteoarthritis Primary hypertension CAD (coronary artery disease), [place] coronary artery CHF (congestive heart failure) Surgical History Hx of hernia repair History of surgery on arm History of mandibular surgery History of cardiac cath Family History Other Cancer Coronary artery disease Dementia Diabetes Hypertension Social History Smoking Status: Never smoker alcohol intake: former substance use type: denies use current occupational status: other Travel in the last 8 weeks: None Have you lived/traveled outside [place] in past 30 days?: No Contact w/someone who lives/traveled outside [place] past 30 days?: No Exposure to someone with infectious disease in past 14 days?: No Do you have a fever (greater than 100.4 F or 38 C)?: No Have you tested positive for COVID-19: No Exposed to someone with COVID-19 in past 14 days?: No Do you have a sore throat?: No Do you have a cough?: No Do you have any weakness?: No Do you have any diarrhea?: No Are you experiencing any unusual bleeding?: No Do you have any muscle aches/pain?: No Do you have any abdominal pain?: No Are you experiencing loss of taste or smell?: No Other Medical History Have you received the Flu Vaccine for this season: Yes Have you received the Pneumonia Vaccine: No <Mandeep Luz MD - Last Filed: 11/02/24 14:59> ROS Obtained: Yes All systems reviewed & no additional complaints except as documented Physical Exam <Mandeep Luz MD - Last Filed: 11/02/24 14:59> General General appearance: alert Head Head exam: normocephalic Eye Eye exam: Present normal appearance, PERRL and EOMI Neck Neck exam: Present normal inspection, full ROM and trachea midline Respiratory Respiratory exam: Absent respiratory distress, wheezes, stridor, accessory muscle use or prolonged expiratory phase Cardiovascular Cardiovascular exam: Present other (Pulses equal symmetric in upper and lower extremities) Abdominal Exam Abdominal exam: Present soft; Absent distention, tenderness or pulsatile mass Extremities Exam Extremities exam: Absent edema Neurological Exam Neurological exam: Present alert, oriented X3 and CN II-XII intact; Absent motor sensory deficit Skin Skin exam: Present warm and dry; Absent diaphoresis or erythema Medical Decision Making <Mandeep Luz MD - Last Filed: 11/02/24 14:59> Medical Records Medical records reviewed: Yes I reviewed the patient's medical records. Screening: Per USPSTF and CDC recommendations, given the prevalence of disease in our region, it is our hospital?s policy to screen for HIV and viral Hepatitis for all patients aged 18 and over and those with ongoing risk factors. Todd Inquiry Pt receiving controlled substance: No Todd was queried for this patient: No Vital Signs: 11/02/24 13:54 11/02/24 14:01 11/02/24 15:00 Temperature 98.3 F Temperature Source Oral Pulse Rate 83 73 Pulse Rate [Right] 81 Respiratory Rate 16 12 13 Blood Pressure 131/87 109/74 L Blood Pressure [Right Radial Artery] 161/90 H Blood Pressure Mean 99 85 Blood Pressure Mean [Right Radial Artery] 113 Blood Pressure Source [Right Radial Artery] Automatic Cuff Blood Pressure Position [Right Radial Artery] Sitting 02 Sat by Pulse Oximetry 98 97 97 Oxygen Delivery Method Room Air 11/02/24 15:30 11/02/24 16:33 Temperature 98.2 F Temperature Source Pulse Rate 78 79 Pulse Rate [Right] Respiratory Rate 14 20 Blood Pressure 108/72 L 122/73 Blood Pressure [Right Radial Artery] Blood Pressure Mean 78 Blood Pressure Mean [Right Radial Artery] Blood Pressure Source [Right Radial Artery] Blood Pressure Position [Right Radial Artery] 02 Sat by Pulse Oximetry 96 Oxygen Delivery Method Room Air Orders (Tests/Meds): ED MEDICATIONS Discontinued Medications Generic Name Dose Route Start Last Admin Trade Name Freq PRN Reason Stop Dose Admin Acetaminophen 1,000 mg 11/02/24 13:52 11/02/24 14:02 Acetaminophen 500mg Tab PO 11/02/24 13:53 Not Given ONCE ONE Ibuprofen 600 mg 11/02/24 13:52 11/02/24 14:02 Ibuprofen 600 Mg Tablet PO 11/02/24 13:53 Not Given ONCE ONE ORDERS Category Date Time Status CT cervical spine wo con Stat Cat Scan 11/02/24 13:[address] head/brain wo con Stat Cat Scan 11/02/24 13:47 Completed Medical Decision Narrative: 54-year-old male history of hypertension, hyperlipidemia, CAD, atrial fibrillation on Xarelto presenting with fall. He states that he was walking up the steps and felt lightheaded. Fell forward and hit his head on the railing outside of the house. No loss of consciousness. History obtained with patient. He states that the pain currently is mild in intensity and does not radiate. No vision changes, some left-sided paraspinal neck tenderness. No neurologic deficits. Differential includes intracranial hemorrhage, skull fracture, critical cervical spine injury, benign MSK injury, among others. Patient was given Tylenol and Motrin for symptoms. EKG independently interpreted, atrial fibrillation 87 bpm with QRS 104, QTc 395 and leftward axis with no acute ischemic change. No obvious arrhythmia. CT scan of the head was independently interpreted and no acute intracranial hemorrhage. 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 Prior to final reads, care handed off to oncoming physician. [employer] Engineer disclaimer Much of this encounter note is an electronic microcomputer support specialist spoken language to printed text. Electronic microcomputer support specialist of the spoken language may permit errors. Although I have reviewed the note, some errors may still exist. <Myesha Herring, DO - Last Filed: 11/02/24 23:48> Vital Signs: 11/02/24 13:54 11/02/24 14:01 11/02/24 15:00 Temperature 98.3 F Temperature Source Oral Pulse Rate 83 73 Pulse Rate [Right] 81 Respiratory Rate 16 12 13 Blood Pressure 131/87 109/74 L Blood Pressure [Right Radial Artery] 161/90 H Blood Pressure Mean 99 85 Blood Pressure Mean [Right Radial Artery] 113 Blood Pressure Source [Right Radial Artery] Automatic Cuff Blood Pressure Position [Right Radial Artery] Sitting 02 Sat by Pulse Oximetry 98 97 97 Oxygen Delivery Method Room Air 11/02/24 15:30 11/02/24 16:33 Temperature 98.2 F Temperature Source Pulse Rate 78 79 Pulse Rate [Right] Respiratory Rate 14 20 Blood Pressure 108/72 L 122/73 Blood Pressure [Right Radial Artery] Blood Pressure Mean 78 Blood Pressure Mean [Right Radial Artery] Blood Pressure Source [Right Radial Artery] Blood Pressure Position [Right Radial Artery] 02 Sat by Pulse Oximetry 96 Oxygen Delivery Method Room Air Orders (Tests/Meds): ED MEDICATIONS Discontinued Medications Generic Name Dose Route Start Last Admin Trade Name Freq PRN Reason Stop Dose Admin Acetaminophen 1,000 mg 11/02/24 13:52 11/02/24 14:02 Acetaminophen 500mg Tab PO 11/02/24 13:53 Not Given ONCE ONE Ibuprofen 600 mg 11/02/24 13:52 11/02/24 14:02 Ibuprofen 600 Mg Tablet PO 11/02/24 13:53 Not Given ONCE ONE ORDERS Category Date Time Status CT cervical spine wo con Stat Cat Scan 11/02/24 13:[address] head/brain wo con Stat Cat Scan 11/02/24 13:47 Completed Medical Decision Narrative: 54-year-old male history of hypertension, hyperlipidemia, CAD, atrial fibrillation on Xarelto presenting with fall. He states that he was walking up the steps and felt lightheaded. Fell forward and hit his head on the railing outside of the house. No loss of consciousness. History obtained with patient. He states that the pain currently is mild in intensity and does not radiate. No vision changes, some left-sided paraspinal neck tenderness. No neurologic deficits. Differential includes intracranial hemorrhage, skull fracture, critical cervical spine injury, benign MSK injury, among others. Patient was given Tylenol and Motrin for symptoms. EKG independently interpreted, atrial fibrillation 87 bpm with QRS 104, QTc 395 and leftward axis with no acute ischemic change. No obvious arrhythmia. CT scan of the head was independently interpreted and no acute intracranial hemorrhage. 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 Prior to final reads, care handed off to oncoming physician. [employer] Mechanical Engineer disclaimer Much of this encounter note is an electronic microcomputer support specialist spoken language to printed text. Electronic microcomputer support specialist of the spoken language may permit errors. Although I have reviewed the note, some errors may still exist. Nima DO: I independently turbid CT scan prior to radiology read and noted no acute fracture or intracranial hemorrhage. Please radiology read for final interpretation. On reassessment, patient is feeling great with no neurologic deficits. He is alert, conversational, no complaints of significant pain. Given this, I feel that he is appropriate for discharge home. Strict return precautions were given Critical Care <Mandeep Luz MD - Last Filed: 11/02/24 14:59> Critical Care Time Critical Care Time: No
[2024-11-02 15:00] VITALS: BP 109/74; PULSE 73; RESP 13; O2SAT 97
--- NOTE | 2024-11-02 15:13 | PC.NURSE ---
Called Radiology to check on the status of ct reads. States it is locked on now and should be read shortly.
[2024-11-02 15:30] VITALS: BP 108/72; PULSE 78; RESP 14; O2SAT 96
[2024-11-02 16:33] VITALS: BP 122/73; PULSE 79; RESP 20; TEMP 36.8; O2SAT 98
== END 2024-11-02 16:35 | disposition home or self-care (01) ==
PROVIDERS: Emergency Provider Emergency Medicine; PCP Family Medicine
DX: S00.83XA Contusion of other part of head, initial encounter (principal); R42 Dizziness and giddiness; I48.91 Unspecified atrial fibrillation; Z79.01 Long term (current) use of anticoagulants; W22.8XXA Striking against or struck by other objects, initial encounter
CPT/HCPCS: 70450; 72125; 93005; 99285

== ENCOUNTER → 2025-04-12 06:26 | Outpatient (CLI) | payer MEDICARE, SELFPAY ==
--- OUTSIDE RECORDS SUMMARY | 2025-04-12 06:29 | XMS_ITS | Data Portability ---
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 House [facility]) [address] [place] [address], 7[address], 12/17/2024 12:17:24 12/18/19 25 12/17/2024 CBC WITH DIFFE RENTI AL/PL ATELE T MCH 30.2 pg 26.2 - 34.0 Not Available Talon Gonzalez MD [facility] ([facility]) [address] [place] [address], [id number], 12/17/2024 12:17:24 12/18/19 25 12/17/2024 CBC WITH DIFFE RENTI AL/PL ATELE T MCHC 31.5 g/dL 31.3 - 36.0 Not Available Talon Gonzalez MD [facility] ([facility]) [address] [place] [address], 10[address], 12/17/2024 12:17:24 12/18/19 25 12/17/2024 CBC WITH DIFFE RENTI AL/PL ATELE T plt 199 10 115 - 421 Not Available Talon Gonzalez MD [facility] ([facility]) [address] [place] [address], 46890, 12/17/2024 12:17:24 12/18/19 25 12/17/2024 CBC WITH DIFFE RENTI AL/PL ATELE T RDW-CV 13.9 % 11.3 - 16.1 Not Available Talon Gonzalez MD [facility] (In House [facility]) [address] [place] [address], [id number], 12/17/2024 12:17:24 12/18/19 25 12/17/2024 CBC WITH DIFFE RENTI AL/PL ATELE T neut# 9.09 10 0.81 - 9.65 Not Available Talon Gonzalez MD [facility] ([facility]) [address] [place] [address], [id number], 12/17/2024 12:17:24 12/18/19 25 12/17/2024 CBC WITH DIFFE RENTI AL/PL ATELE T lymph# 1.72 10 0.65 - 4.81 Not Available Talon Gonzalez MD [facility] ([facility]) [address] [place] [address], 52220, 12/17/2024 12:17:24 12/18/19 25 12/17/2024 CBC WITH DIFFE RENTI AL/PL ATELE T mono# 0.94 10 0.10 - 1.13 Not Available Talon Gonzalez MD [facility] ([facility]) [address] [place] [address], 14142, 12/17/2024 12:17:24 12/18/19 25 12/17/2024 CBC WITH DIFFE RENTI AL/PL ATELE T eo# 0.09 10 0.00 - 0.50 Not Available Talon Gonzalez MD [facility] ([facility]) [address] [place] [address], [id number], 12/17/2024 12:17:24 12/18/19 25 12/17/2024 CBC WITH DIFFE RENTI AL/PL ATELE T baso# 0.02 10 0.00 - 0.09 Not Available Talon Gonzalez MD [facility] ([facility]) [address] [place] [address], 56[address], 12/17/2024 12:17:24 12/18/19 25 12/17/2024 CBC WITH DIFFE RENTI AL/PL ATELE T neut% 76.6 % 37.2 - 78.0 Not Available Talon Gonzalez MD [facility] (In House [facility]) [address] [place] [address], 21008, 12/17/2024 12:17:24 12/18/19 25 12/17/2024 CBC WITH DIFFE RENTI AL/PL ATELE T lymph% 14.5 % 13.4 - 50.2 Not Available Talon Gonzalze MD [facility] ([facility]) [address] [place] [address], 43070, 12/17/2024 12:17:24 12/18/1912/17/2024 CBC WITH DIFFE RENTI AL/PL ATELE T mono% 7.9 % 3.4 - 12.0 Not Available Talon Gonzalez MD [facility] ([facility]) [address] [place] [address], 83977, 12/17/2024 12:17:24 12/18/1912/17/2024 CBC WITH DIFFE RENTI AL/PL ATELE T eo% 0.8 % 0.0 - 7.0 Not Available Talon Gonzalez MD [facility] ([facility]) [address] [place] [address], 18565, 12/17/2024 12:17:24 12/18/19 25 12/17/2024 CBC WITH DIFFE RENTI AL/PL ATELE T baso% 0.2 % 0.0 - 3.0 Not Available Talon Gonzalez MD [facility] (In House [facility]) [address] [place] [address], 28846, 12/17/2024 12:17:24 02/15/20 25 02/14/2025 GABAP ENTIN abnormal status abnormal Not Available Gregory Gonzalez MD [facility] ([facility] House [facility]) [address] [place] [address], 738[address], 02/18/2025 12:48:56 02/15/20 25 02/14/2025 GABAP ENTIN abnormal status high Not Available Gregory Gonzalez MD [facility] ([facility]) [address] [place] [address], 61186, 02/18/2025 12:48:56 02/15/20 25 02/18/2025 OPIAT E DEFIN ITIVE PANEL LC/MS codeine 0.0 NG/mL <75.0 Not Available Talon Gonzalez MD [facility] ([facility]) [address] [place] [address], 61481, 02/18/2025 12:48:56 02/15/20 25 02/18/2025 OPIAT E DEFIN ITIVE PANEL LC/MS morphine 0 NG/mL <75.0 Not Available Talon Gonzalez MD [facility] ([facility]) [address] [place] [address], 87524, 02/18/2025 12:48:56 02/15/20 25 02/18/2025 OPIAT E DEFIN ITIVE PANEL LC/MS 6-DANNY 0 NG/mL <15.0 Not Available Talon Gonzalez MD [facility] ([facility]) [address] [place] [address], [id number], 02/18/2025 12:48:56 02/15/20 25 02/18/2025 OPIAT E DEFIN ITIVE PANEL LC/MS hydromorphon e 1239.6 NG/mL <75.0 abnormal Not Available Gregory Gonzalez MD [facility] ([facility]) [address] [place] [address], 82139, 02/18/2025 12:48:56 02/15/20 25 02/18/2025 OPIAT E DEFIN ITIVE PANEL LC/MS hydrocodone 4714.8 NG/mL <75.0 abnormal Not Available Joel Gonzalez MD [facility] ([facility]) [address] [place] [address], 19920, 02/18/2025 12:48:56 02/15/20 25 02/18/2025 OPIAT E DEFIN ITIVE PANEL LC/MS norhydrocodo ne 1224.0 NG/mL <75.0 abnormal Not Available Gregory Gonzalez MD [facility] ([facility]) [address] [place] [address], 74826, 02/18/2025 12:48:56 02/15/20 25 02/18/2025 GABAP ENTIN DEFIN ITIVE PANEL -LC/M S gabapentin >65932 NG/mL <5000. 0 abnormal Not Available Talon Gonzalez MD [facility] ([facility]) [address] [place] [address], 00879, 02/18/2025 12:48:55 02/15/20 25 02/14/2025 D-PRE SUMPT LALITA URINE DRUG REPOR T amphetamine NEGATI VE NG/mL <1000. 0 Not Available Talon Gonzalez MD [facility] ([facility]) [address] [place] [address], 84439, 02/18/2025 12:48:55 02/15/20 25 02/14/2025 D-PRE SUMPT LALITA URINE DRUG REPOR T benzodiazepi ne <3.3 NG/mL <200.0 Curre nt metho d may not detec t low level s of [place] Not Available Talon Gonzalez MD [facility] ([facility]) [address] [place] [address], 17890, 02/18/2025 12:48:55 02/15/20 25 02/14/2025 D-PRE SUMPT LALITA URINE DRUG REPOR T buprenorphin e NEGATI VE NG/mL <10.0 Not Available Talon Gonzalez MD [facility] ([facility]) [address] [place] [address], 49530, 02/18/2025 12:48:55 02/15/20 25 02/14/2025 D-PRE SUMPT LALITA URINE DRUG REPOR T cannabinoid NEGATI VE NG/mL <50.0 Not Available Talon Gonzalez MD [facility] ([facility]) [address] [place] [address], 66342, 02/18/2025 12:48:55 02/15/2002/14/2025 D-PRE SUMPT LALITA URINE DRUG REPOR T cocaine NEGATI VE NG/mL <300.0 Not Available Talon Gonzalez MD [facility] ([facility]) [address] [place] [address], 01894, 02/18/2025 12:48:55 02/15/20 25 02/14/2025 D-PRE SUMPT LALITA URINE DRUG REPOR T ethanol NEGATI VE mg/dL <50.0 Not Available Talon Gonzalez MD [facility] ([facility]) [address] [place] [address], 79291, 02/18/2025 12:48:55 02/15/20 25 02/14/2025 D-PRE SUMPT LALITA URINE DRUG REPOR T methadone 43.0 NG/mL <300.0 Not Available Talon Gonzalez MD [facility] ([facility]) [address] [place] [address], 43068, 02/18/2025 12:48:55 02/15/20 25 02/14/2025 D-PRE SUMPT LALITA URINE DRUG REPOR T opiates 987.0 NG/mL <300.0 high Opiat es inclu henry Codei ne,Mo rphin e, [place] morph one,H ydroc odone Not Available Talon Gonzalez MD [facility] ([facility]) [address] [place] [address], 51874, 02/18/2025 12:48:55 02/15/20 25 02/14/2025 D-PRE SUMPT LALITA URINE DRUG REPOR T oxycodone 25.0 NG/mL <300.0 Not Available Talon Gonzalez MD [facility] ([facility]) [address] [place], [address], 02/18/2025 12:48:55 02/15/20 25 02/14/2025 D-PRE SUMPT LALITA URINE DRUG REPOR T urine creatinine (validity test) 264.2 mg/dL 20.0 - 300.0 Not Available Talon Gonzalez MD [facility] ([facility]) [address] [place], [address], 02/18/2025 12:48:55 Result Notes None recorded. Problems Name Problem SNOMED Code Status Onset Date Resolution Date Notes Provider Name and Address Organization Details Recorded Time Degeneration of lumbar intervertebral disc 18038233 Active 2023 [place] [address] [place] [address], [phone] 4, [facility] 10:43:20 Low back pain 641395552 Active 2023 [place] [address] [place] [address], [phone] 4, [facility] 14:30:28 Problem Notes None recorded. Procedures Surgical History Date Name Laterality Status Provider Name and Address Organization Details Recorded Time placement of stent in pulmonary artery completed [facility] 09/12/2023 10:16:10 hernia repair completed [facility] 09/12/2023 10:16:21 Imaging Results None recorded. Procedure Notes None recorded. Medical Equipment None Reported. Allergies Allergen ID Allergen Name Allergen Category Reaction Reaction Severity Criticality Documentation Date Start Date Code Code System Note Provider Name and Address Organization Details Recorded Time 15456 Product containin g penicilli n (product) medicatio n Not available Not available Not available 09/12/2023 04824 8001 SNOMED Ofelia [facility] 4 10:15:55 Medications Name Sig Start Date Stop Date Status Note LastModified by Organization Details LastModified Time furosemide 40 mg tablet active Not Available Not Available No t Available atorvastatin 20 mg tablet active Not Available Not Available Not Available tizanidine 4 mg tablet active Not Available Not Available No t Available diltiazem CD 240 mg capsule,exten ded release 24 hr 04/10 completed Not Available Not Available Not Available metoprolol succinate ER 100 mg tablet,extend ed release 24 hr active Not Available Not Available Not Available diltiazem CD 360 mg capsule,exten ded release 24 hr 04/10 completed Not Available Not Available Not Available clopidogrel 75 mg tablet active Not Available Not Available Not Available prochlorperaz ine maleate 10 mg tablet 04/10 completed Not Available Not Available Not Available hydrocodone 10 mg-acetaminop hen 325 mg tablet Take 1 tablet 4 times a day by oral route as needed for 30 days. 2024 active Not Available Not Available Not Avai lable spironolacton e 25 mg tablet active Not Available Not Available Not Available amitriptyline 25 mg tablet active Not Available Not Available Not Available gabapentin 800 mg tablet Take 1 tablet 3 times a day by oral route. 2024 active Not Available Not Available Not Avai lable hydrocodone 7.5 mg-acetaminop hen 325 mg tablet Take 1 tablet 3 times a day by oral route as needed for 30 days. 03/08 completed Not Available Not Available Not Available cephalexin 500 mg capsule 04/10 completed Not Available Not Available Not Available pantoprazole 40 mg tablet,delaye d release active Not Available Not Available No t Available lidocaine 5 % topical patch active Not Available Not Availabl e Not Available oxycodone-lucio taminophen 7.5 mg-325 mg tablet 04/10 completed Not Available Not Available Not Available methylprednis olone 4 mg tablets in a dose pack 04/10 completed Not Available Not Available Not Available lisinopril 40 mg tablet active Not Available Not Available No t Available fluoxetine 20 mg capsule active Not Available Not Available N ot Available metoclopramid e 10 mg tablet active Not Available Not Available Not Available azithromycin 500 mg tablet 04/10 completed Not Available Not Available Not Available propafenone ER 225 mg capsule,exten ded release 12 hr 04/10 completed Not Available Not Available Not Available levocetirizin e 5 mg tablet active Not Available Not Availabl e Not Available nebivolol 20 mg tablet active Not Available Not Available No t Available Xarelto 20 mg tablet active Not Available Not Available Not Available Ozempic 0.25 mg or 0.5 mg (2 mg/1.5 mL) subcutaneous pen injector 04/10 completed Not Available Not Available Not Available [facility] ODT 75 mg disintegratin g tablet active Not Available Not Available Not Available Ozempic 0.25 mg or 0.5 mg (2 mg/3 mL) subcutaneous pen injector active Not Available Not Available Not Available Vitals Date Recorded Body height Body mass index (BMI) Body weight Body temperature Respiratory rate Heart rate Systolic And Diastolic Provider Name and Address Organization Details Last Updated DateTime 5 198.12 cm 43.3 kg/m2 494814. 14 g 98 [degF] 18 /min 98 /min 156/78 mm[Hg] [facility] 5 10:24:08 Date Recorded Body height Body mass index (BMI) Body weight Respiratory rate Body temperature Heart rate Systolic And Diastolic Provider Name and Address Organization Details Last Updated DateTime 5 198.12 cm 43.3 kg/m2 390233. 14 g 18 /min 98.2 [degF] 71 /min 109/74 mm[Hg] Muriel [facility] 5 08:08:00 Date Recorded Body height Respiratory rate Body temperature Body mass index (BMI) Body weight Provider Name and Address Organization Details Last Updated DateTime 12/17/2024 198.12 cm 18 /min 97.9 [degF] 42.8 kg/m2 328821. 18 g Ally [facility] 5 08:14:04 Date Recorded Body height Body mass index (BMI) Body weight Respiratory rate Body temperature Heart rate Systolic And Diastolic Provider Name and Address Organization Details Last Updated DateTime 5 198.12 cm 43.9 kg/m2 367139. 1 g 18 /min 98.2 [degF] 78 /min 126/66 mm[Hg] [facility] 5 08:39:22 Date Recorded Body height Body mass index (BMI) Body weight Respiratory rate Body temperature Heart rate Systolic And Diastolic Provider Name and Address Organization Details Last Updated DateTime 4 198.12 cm 42.8 kg/m2 361625. 18 g 18 /min 98 [degF] 70 /min 127/71 mm[Hg] [facility] 4 08:42:32 Social History Question Answer Notes LastModified by Organizat ion Details LastModified Time Tobacco Smoking Status Never Smoker [facility] 09/12/2023 10:16:54 What Is Your Level Of Caffeine Consumption? Occasional Information not available 09/12/2023 Sex: Male Functional Status Question Answer Note LastModified by Organizat ion Details LastModified Time Do you use any illicit or recreational drugs? No Information not available 09/12/2023 What is your level of alcohol consumption? None Information not available 09/12/2023 Mental Status None recorded. Family History Nothing Reported. Medical History Condition Response [facility] Y Immunizations Vaccine Type Date Status Note Provider Nam e and Address Organization Details Recorded Time SARS-COV-2 (COVID-19) vaccine, UNSPECIFIED 08/18/2023 completed [facility] 09/12/2023 10:13:18 Past Encounters Encounter ID Performer Location Encounter Start Date Encounter Closed Date Diagnosis/Indication Diagnosis SNOMED-CT Code Diagnosis ICD10 Code Diagnosis IMO Codes Diagnosis Note [id number] DAVID HARMAN MD [facility] [address] [address] 09/12/2023 09:42:15 09/12/2023 15:39:38 Chronic low back pain 954362679 M54.50 Long-term current use of opiate analgesic drug 7286904627 11556 Z79.891 Diagnostic /Lab: Order Presumptiv e UDT (necessary for rapid results) with Definitive confirmati on for chronic pain patient, to define treatment and reinforce therapeuti c compliance ; the following apply: [Presumpti ve UDT includes: (Amp, Yue, Dk, Bup, THC, VENKAT, ETOH, Meth, Opi, Oxy )] *-Patient is receiving controlled medication s. *-Presumpt lalita UDT to identify presence of illicit/no n-prescrib ed substance( s) - Confirm positive for ongoing safe prescribin g of controlled substances . *-Presumpt lalita UDT to identify presence of licit/pres cribed substance( s)-Confirm unexpected results, identify specific drug(s) in large class and ensure appropriat e use of prescribed medication (s). *-Definiti ve UDT inadequate ly detected by Presumptiv e UDT (gabapenti n, pregabalin , tramadol, fentanyl, tapentadol and carisoprod ol). HP2 (CBC/CMP/G GT) C BC - ordered to monitor the effects of prescribed medication CMP/GGT - ordered to obtain baseline levels for renal and hepatic functions and electrolyt e statusdraw n to monitor the senior living effects of current medication . Degenerati on of lumbar intervertebral disc 41945264 M51.36 [id number] Lurdes Huntley APRN [address] [place], [place] [id number] 4 11/08/2023 10:54:36 11/09/2023 17:23:43 Long-term current use of opiate analgesic drug 6392627269 99833 Z79.891 Chronic low back pain 27 2200738 M54.50 Degenerati on of lumbar intervertebral disc 09479813 M51.36 [id number] DAVID HARMAN MD [address] [place] [phone] 4 01/11/2024 09:15:04 01/11/2024 09:48:52 Degeneration of lumbar intervertebral disc 41963507 M51.36 Long-term current use of opiate analgesic drug 5775220534 28464 Z79.891 Diagnostic /Lab: Order Presumptiv e UDT (necessary for rapid results) with Definitive confirmati on for chronic pain patient, to define treatment and reinforce therapeuti c compliance ; the following apply: [Presumpti ve UDT includes: (Amp, Yue, Dk, Bup, THC, VENKAT, ETOH, Meth, Opi, Oxy )] *-Patient is receiving controlled medication s. *-Presumpt lalita UDT to identify presence of illicit/no n-prescrib ed substance( s) - Confirm positive for ongoing safe prescribin g of controlled substances . *-Presumpt lalita UDT to identify presence of licit/pres cribed substance( s)-Confirm unexpected results, identify specific drug(s) in large class and ensure appropriat e use of prescribed medication (s). *-Definiti ve UDT inadequate ly detected by Presumptiv e UDT (gabapenti n, pregabalin , tramadol, fentanyl, tapentadol and carisoprod ol). HP2 (CBC/CMP/G GT) C BC - ordered to monitor the effects of prescribed medication CMP/GGT - ordered to obtain baseline levels for renal and hepatic functions and electrolyt e statusdraw n to monitor the senior living effects of current medication . [id number] Lurdes Huntley, BRADLEY [address] [place], [place] [phone] 4 03/08/2024 07:54:06 03/13/2024 15:37:39 Chronic low back pain 548520159 M54.50 Degenerati on of lumbar intervertebral disc 47185119 M51.36 [id number] DAVID HARMAN MD [address] [place], [place] [phone] 4 05/03/2024 08:33:10 05/03/2024 08:50:25 Long-term current use of opiate analgesic drug [id number] 02103 Z79.891 Diagnostic /Lab: Order Presumptiv e UDT (necessary for rapid results) with Definitive confirmati on for chronic pain patient, to define treatment and reinforce therapeuti c compliance ; the following apply:[Pre sumptive UDT includes: (Amp, Yue, Dk, Bup, THC, VENKAT, ETOH, Meth, Opi, Oxy )]*-Patien t is receiving controlled medication s.*-Presum ptive UDT to identify presence of illicit/no n-prescrib ed substance( s) - Confirm positive for ongoing safe prescribin g of controlled substances .*-Presump tive UDT to identify presence of licit/pres cribed substance( s)-Confirm unexpected results, identify specific drug(s) in large class and ensure appropriat e use of prescribed medication (s). _*-Definit lalita UDT inadequate ly detected by Presumptiv e UDT (gabapenti n, pregabalin , tramadol, fentanyl, tapentadol and carisoprod ol).HP2 (CBC/CMP/G GT) C BC - ordered to monitor the effects of prescribed medication CMP/GGT - ordered to obtain baseline levels for renal and hepatic functions and electrolyt e statusdraw n to monitor the senior living effects of current medication .Diagnosti c/Lab: Order Presumptiv e UDT (necessary for rapid results) with Definitive confirmati on for chronic pain patient, to define treatment and reinforce therapeuti c compliance ; the following apply: [Presumpti ve UDT includes: (Amp, Yue, Dk, Bup, THC, VENKAT, ETOH, Meth, Opi, Oxy )] *-Patient is receiving controlled medication s. *-Presumpt lalita UDT to identify presence of illicit/no n-prescrib ed substance( s) - Confirm positive for ongoing safe prescribin g of controlled substances . *-Presumpt lalita UDT to identify presence of licit/pres cribed substance( s)-Confirm unexpected results, identify specific drug(s) in large class and ensure appropriat e use of prescribed medication (s). *-Definiti ve UDT inadequate ly detected by Presumptiv e UDT (gabapenti n, pregabalin , tramadol, fentanyl, tapentadol and carisoprod ol). HP1 (CBC/Renal /Hepatic/G GT) CBC - ordered to monitor the effects of prescribed medication s. Renal/Hepa tic/GGT - ordered to monitor toxicity of renal hepatic function due to medication . Degenerati on of lumbar intervertebral disc 70192251 M51.369 Low back pain 912827697 M54.50 [id number] Yuki YAKOV [place] [employer] [address] [address] 06/27/2024 08:29:53 07/04/2024 10:29:09 Degeneration of lumbar intervertebral disc 63999050 M51.369 Low back pain 742889713 M54.50 [id number] DAVID HARMAN MD [address] [address] 4 08/24/2024 10:19:38 08/24/2024 11:01:32 Long-term current use of opiate analgesic drug [id number] 10561 Z79.891 [id number] Diagnostic /Lab: Order Presumptiv e UDT (necessary for rapid results) with Definitive confirmati on for chronic pain patient, to define treatment and reinforce therapeuti c compliance ; the following apply:[Pre sumptive UDT includes: (Amp, Yue, Dk, Bup, THC, VENKAT, ETOH, Meth, Opi, Oxy )]*-Patien t is receiving controlled medication s.*-Presum ptive UDT to identify presence of illicit/no n-prescrib ed substance( s) - Confirm positive for ongoing safe prescribin g of controlled substances .*-Presump tive UDT to identify presence of licit/pres cribed substance( s)-Confirm unexpected results, identify specific drug(s) in large class and ensure appropriat e use of prescribed medication (s). 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 .Diagnosti c/Lab: Order Presumptiv e UDT (necessary for rapid results) with Definitive confirmati on for chronic pain patient, to define treatment and reinforce therapeuti c compliance ; the following apply:[Pre sumptive UDT includes: (Amp, Yue, Dk, Bup, THC, VENKAT, ETOH, Meth, Opi, Oxy )]*-Patien t is receiving controlled medication s.*-Presum ptive UDT to identify presence of illicit/no n-prescrib ed substance( s) - Confirm positive for ongoing safe prescribin g of controlled substances .*-Presump tive UDT to identify presence of licit/pres cribed substance( s)-Confirm unexpected results, identify specific drug(s) in large class and ensure appropriat e use of prescribed medication (s). _*-Definit lalita UDT inadequate ly detected by Presumptiv e UDT (gabapenti n, pregabalin , tramadol, fentanyl, tapentadol and carisoprod ol).HP1 (CBC/Renal /Hepatic/G GT) CBC - ordered to monitor the effects of prescribed medication s. Renal/Hepa tic/GGT - ordered to monitor toxicity of renal hepatic function due to medication .Diagnosti c/Lab: Order Presumptiv e UDT (necessary for rapid results) with Definitive confirmati on for chronic pain patient, to define treatment and reinforce therapeuti c compliance ; the following apply: [Presumpti ve UDT includes: (Amp, Yue, Dk, Bup, THC, VENKAT, ETOH, Meth, Opi, Oxy )] *-Patient is receiving controlled medication s. *-Presumpt lalita UDT to identify presence of illicit/no n-prescrib ed substance( s) - Confirm positive for ongoing safe prescribin g of controlled substances . *-Presumpt lalita UDT to identify presence of licit/pres cribed substance( s)-Confirm unexpected results, identify specific drug(s) in large class and ensure appropriat e use of prescribed medication (s). *-Definiti ve UDT inadequate ly detected by Presumptiv e UDT (gabapenti n, pregabalin , tramadol, fentanyl, tapentadol and carisoprod ol). Degenerati on of lumbar intervertebral disc 25712630 M51.369 Low back pain 202927148 M54.50 [id number] DAVID HARMAN MD [address] [place] [address] 10/22/2024 07:59:46 10/22/2024 08:26:32 Degeneration of lumbar intervertebral disc 23550607 M51.369 Low back pain 791994352 M54.50 [id number] DAVID HARMAN MD [facility] [address] [address] 12/17/2024 08:03:44 12/25/2024 16:39:38 Chronic low back pain 060022232 M54.50 Degenerati on of lumbar intervertebral disc 37688509 M51.362 [id number] Long-term current use of opiate analgesic drug 1075855970 13271 Z79.891 [id number] Diagnostic /Lab: Order Presumptiv e UDT (necessary for rapid results) with Definitive confirmati on for chronic pain patient, to define treatment and reinforce therapeuti c compliance ; the following apply: [Presumpti ve UDT includes: (Amp, Yue, Dk, Bup, THC, VENKAT, ETOH, Meth, Opi, Oxy )] *-Patient is receiving controlled medication s. *-Presumpt lalita UDT to identify presence of illicit/no n-prescrib ed substance( s) - Confirm positive for ongoing safe prescribin g of controlled substances . *-Presumpt lalita UDT to identify presence of licit/pres cribed substance( s)-Confirm unexpected results, identify specific drug(s) in large class and ensure appropriat e use of prescribed medication (s). *-Definiti ve UDT inadequate ly detected by Presumptiv e UDT (gabapenti n, pregabalin , tramadol, fentanyl, tapentadol and carisoprod ol). HP1 (CBC/Renal /Hepatic/G GT) CBC - ordered to monitor the effects of prescribed medication s. Renal/Hepa tic/GGT - ordered to monitor toxicity of renal hepatic function due to medication . [id number] Lurdes Huntley APRN [facility] [address] [address] 02/14/2025 08:28:21 02/14/2025 08:59:32 Chronic low back pain 175055099 M54.50 Degenerati on of lumbar intervertebral disc 97587373 M51.362 [id number] Long-term current use of opiate analgesic drug [id number] 74797 Z79.891 Diagnostic /Lab: Order Presumptiv e UDT (necessary for rapid results) with Definitive confirmati on for chronic pain patient, to define treatment and reinforce therapeuti c compliance ; the following apply: [Presumpti ve UDT includes: (Amp, Yue, Dk, Bup, THC, VENKAT, ETOH, Meth, Opi, Oxy )] *-Patient is receiving controlled medication s. *-Presumpt lalita UDT to identify presence of illicit/no n-prescrib ed substance( s) - Confirm positive for ongoing safe prescribin g of controlled substances . *-Presumpt lalita UDT to identify presence of licit/pres cribed substance( s)-Confirm unexpected results, identify specific drug(s) in large class and ensure appropriat e use of prescribed medication (s). *-Definiti ve UDT inadequate ly detected by Presumptiv e UDT (gabapenti n, pregabalin , tramadol, fentanyl, tapentadol and carisoprod ol). Health Concerns Section Related Observation LastModified by Organization Detai ls LastModified Time None Recorded Concern Status LastModified by Organization Details LastModified Time None Recorded Advance Directives Directive None Recorded Payers Insurance Date Sequence Insurance Name Policy Number Policy Buenrostro Covered Member ID Buenrostro Member ID Guarantor Name [id number] 1 [place] Jose Leal [id number] Jose Leal 09/12/2023 1 [facility] (MEDICAID REPLACEMENT - HMO) Jose Leal [id number] Jose Leal 02/14/2025 2 [place] [place] FFS/TRADITIONA L Jose Leal [id number] Jose Leal Notes Date Note Type Note Provider Name and Address Organization Details Recorded Time 06/27/2024 text/html ROS as noted in the HPI Patient RTC for the management of his chronic lumbar pain.Patient reports has been about the same since last visit. Quality: deep throbbing with pressureImproves with the pain medsAggravating factors: any activity Patient is here for med refills today, reports compliance, states use of medication gives some relief and allows more physical function. Patient reports tolerating the medication well and denies any adverse effects including toxic effects, respiratory sedation, driving problems, or GI problems. Yuki Memo, YAKOV ELECTR[employer] BLANKET WIRER [address] [facility] [address], [place], [address], [facility] 06/28/2024 07:43:56 08/24/2024 text/html [facility] report reviewed and compliant. Pain is in lower back and down both leg. Pain feels like dull pain. Pain keeps awake at night. Pain is constant. Pain gets intense and severe, Pain made better by meds, Pain made worse by work. Pain radiates. Patient is a follow up Medical management is stable and no changes today except increase TID to QID DAVID HARMAN MD [address] [place], [address], [facility] 08/24/2024 10:58:05 10/22/2024 text/html [facility] report reviewed and compliant. Pain is in the lower back and legs Pain feels like sharp and ache and burning.. Pain is constant. Pain keeps awake at night. Pain gets intense and severe. Pain made better by meds. Pain made worse by activity. Pain does radiate. Medical management is stable and no changes today DAVID HARMAN MD [address], [place], [address], [facility] 10/22/2024 08:17:58 12/17/2024 text/html Patient presents for medication refill. Patient is here for a nursing visit.\Pt states pain meds do about halft. Just enough to keep him functioning. Pain is the same. DAVID HARMAN MD [address], [place], [address], [facility] 01/03/2025 15:29:17 02/14/2025 text/html He states pain is unchanged but he is still working a part-time job.He has pain at all times but it is varied in intensity. It is made worse w/ 'anything I do'.He states pain radiates up his back and down gena LE w/ N/TMedications provide partial relief without SE Lurdes Huntley, ELECTRIC BLANKET WIRER [address] [facility], [place], [address], [facility] 02/14/2025 15:47:15
--- OUTSIDE RECORDS SUMMARY | 2025-04-12 06:29 | XMS_ITS | Continuity of Care Document ---
Author Organization [facility] [address] [place] [address] [place] [address] Care Team Providers Care Refuge Worker Name Role Phone HI JARVIS Primary Care Provider Assessment Encounter Date Assessment Date Assessment LastModified by Organization Details LastModified Time 02/14/2025 02/14/2025 Medication compliance: According to patient [...] the patient's treatment with controlled substances Non [place] resident Difficulty in contacting the patient ( i.e. multiple residences, multiple phone numbers/no phone, frequent out of town travel/out-of- state work) Lab work reviewed: UDS of 6.. reviewed and is Appropriate . ROSHNI (prescription drug monitoring report): 02.14.25 is appropriate Not available 02/14/2025 08:45:37 Plan of Treatment Reminders Order Date Submit Date Provider Last Modified By Organization Details Last Modified Time Details Appointments Office Visit15 2024 08:15A Jennifer Huntley, BROADCAST FIELD SUPERVISOR Not available Not available Not available [facility] 2024 09:00A Jennifer SPAULDING APRN Not available Not available Not available Office Visit15 2024 08:00A Jennifer Huntley APRN Not available Not available Not available Lab drug screen, urine - Meds: NORCO GABAPENTI N RVM 2024 025 FRANDY Gonzalez MD [facility] ([facility]), [address] [place] [address], [address], 02/18/2025 12:48:55 Referral None recorded. Procedures None recorded. Surgeries None recorded. Imaging None recorded. Medication Orders hydrocodo ne 10 mg-acetam inophen 325 mg tablet 2024 025 [facility], [address] [facility] [facility] [address], [place], [address], 02/14/2025 08:57:24 hydrocodo ne 10 mg-acetam inophen 325 mg tablet 2024 025 [facility], [address] [place] [address], [address], [place], [address], 02/14/2025 08:57:27 gabapenti n 800 mg tablet 2024 025 [facility], [facility] [address] [facility], [address], [place], [address], 02/14/2025 08:57:29 Patient TargetsNo targets recorded. Patient Instructions Encounter Date Encounter Id Patient Instructions Last Modified By Organization Details Last Modified Time 02/14/2025 [id number] 1. Continue current medications 2. Encourage light [...] Abnormal Flag Note LastModifiedBy Organization Detail LastModifiedTime 02/15/2002/14/2025 GABAP ENTIN abnormal status abnormal Not Available Gregory Gonzalez MD [facility] ([facility]) [address] [place], [address], 02/18/2025 12:48:56 02/15/2002/14/2025 GABAP ENTIN abnormal status high Not Available Gregory Gonzalez MD [facility] ([facility]) [address] [place], [address], 02/18/2025 12:48:56 02/15/2002/18/2025 OPIAT E DEFIN ITIVE PANEL LC/MS codeine 0.0 NG/mL <75.0 Not Available Talon Gonzalez MD [facility] ([facility]) [address] [place], [address], 02/18/2025 12:48:56 02/15/20 25 02/18/2025 OPIAT E DEFIN ITIVE PANEL LC/MS morphine 0 NG/mL <75.0 Not Available Talon Gonzalez MD [facility] ([facility]) [address] [place] [address], [address], 02/18/2025 12:48:56 02/15/20 25 02/18/2025 OPIAT E DEFIN ITIVE PANEL LC/MS 6-DANNY 0 NG/mL <15.0 Not Available Talon Gonzalez MD [facility] ([facility]) [address] [place] [address], [address], 02/18/2025 12:48:56 02/15/20 25 02/18/2025 OPIAT E DEFIN ITIVE PANEL LC/MS hydromorphon e 1239.6 NG/mL <75.0 abnormal Not Available Gregory Gonzalez MD [facility] ([facility]) [address] [place] [address], [address], 02/18/2025 12:48:56 02/15/2002/18/2025 OPIAT E DEFIN ITIVE PANEL LC/MS hydrocodone 4714.8 NG/mL <75.0 abnormal Not Available Joel Gonzalez MD [facility] ([facility]) [address] [place] [address], [address], 02/18/2025 12:48:56 02/15/20 25 02/18/2025 OPIAT E DEFIN ITIVE PANEL LC/MS norhydrocodo ne 1224.0 NG/mL <75.0 abnormal Not Available Gregory Gonzalez MD [facility] ([facility]) [address] [place] [address], [address], 02/18/2025 12:48:56 02/15/2002/18/2025 GABAP ENTIN DEFIN ITIVE PANEL -LC/M S gabapentin >83344 NG/mL <5000. 0 abnormal Not Available Talon Gonzalez MD [facility] ([facility]) [address] [place] [address], [address], 02/18/2025 12:48:55 02/15/20 25 02/14/2025 D-PRE SUMPT LALITA URINE DRUG REPOR T amphetamine NEGATI VE NG/mL <1000. 0 Not Available Talon Gonzalez MD [facility] ([facility]) [address] [place] [address], [address], 02/18/2025 12:48:55 02/15/20 25 02/14/2025 D-PRE SUMPT LALITA URINE DRUG REPOR T benzodiazepi ne <3.3 NG/mL <200.0 Curre nt metho d may not detec t low level s of [place] pin Not Available Talon Gonzalez MD [facility] ([facility]) [address] [place] [address], [address], 02/18/2025 12:48:55 02/15/20 25 02/14/2025 D-PRE SUMPT LALITA URINE DRUG REPOR T buprenorphin e NEGATI VE NG/mL <10.0 Not Available Talon Gonzalez MD [facility] ([facility]) [address] [place] [address], [address], 02/18/2025 12:48:55 02/15/20 25 02/14/2025 D-PRE SUMPT LALITA URINE DRUG REPOR T cannabinoid NEGATI VE NG/mL <50.0 Not Available Talon Gonzalez MD [facility] ([facility]) [address] [place] [address], [address], 02/18/2025 12:48:55 02/15/20 25 02/14/2025 D-PRE SUMPT LALITA URINE DRUG REPOR T cocaine NEGATI VE NG/mL <300.0 Not Available Talon Gonzalez MD [facility] ([facility]) [address] [place] [address], [address], 02/18/2025 12:48:55 02/15/20 25 02/14/2025 D-PRE SUMPT LALITA URINE DRUG REPOR T ethanol NEGATI VE mg/dL <50.0 Not Available Talon Gonzalez MD [facility] ([facility]) [address] [place] [address], [address], 02/18/2025 12:48:55 02/15/20 25 02/14/2025 D-PRE SUMPT LALITA URINE DRUG REPOR T methadone 43.0 NG/mL <300.0 Not Available Talon Gonzalez MD [facility] ([facility]) [address] [place] [address], [address], 02/18/2025 12:48:55 02/15/20 25 02/14/2025 D-PRE SUMPT LALITA URINE DRUG REPOR T opiates 987.0 NG/mL <300.0 high Opiat es inclu henry Codei ne,Mo rphin e, Mercedes morph one,H ydroc odone Not Available Talon Gonzalez MD [facility] ([facility]) [address] [place] [address], [address], 02/18/2025 12:48:55 02/15/20 25 02/14/2025 D-PRE SUMPT LALITA URINE DRUG REPOR T oxycodone 25.0 NG/mL <300.0 Not Available Talon Gonzalez MD [facility] ([facility]) [address] [place] [address], [address], 02/18/2025 12:48:55 02/15/20 25 02/14/2025 D-PRE SUMPT LALITA URINE DRUG REPOR T urine creatinine (validity test) 264.2 mg/dL 20.0 - 300.0 Not Available Talon Gonzalez MD [facility] ([facility]) [address] [place] [address], [address], 02/18/2025 12:48:55 Result Notes None recorded. Problems Name Problem SNOMED Code Status Onset Date Resolution Date Notes Provider Name and Address Organization Details Recorded Time Degeneration of lumbar intervertebral disc 01303690 Active 2023 DAVID HARMAN MD [facility] [place], [address], [facility] 10:43:20 Low back pain 291862108 Active 2023 DAVID HARMAN MD [facility] [place], [address], [place] [facility] 14:30:28 Problem Notes [...] Name and Address Organization Details Recorded Time 06233 Product containin g penicilli n (product) medicatio n Not available Not available Not available 09/12/2023 64291 8001 SNOMED [facility] 10:15:55 Medications Name Sig Start Date Stop [...] 3 times a day by oral route. 07/31/ 2025 active Not Available Not Available Not Avai [...] completed Not Available Not Available Not Available Nurtec ODT 75 mg disintegratin g tablet active [...] Updated DateTime 5 198.12 cm 43.9 kg/m2 326458. 1 g 18 /min 98.2 [degF] 78 /min 126/66 mm[Hg] [facility] 5 08:39:22 Social History Question Answer Notes LastModified by [...] History Nothing Reported. Medical History Condition Response [facility] Y Immunizations Vaccine Type Date Status Note Provider Nam e and Address Organization Details Recorded Time SARS-COV-2 (COVID-19) vaccine, UNSPECIFIED 08/18/2023 completed [facility] 09/12/2023 10:13:18 Past Encounters Encounter ID Performer Location Encounter Start Date Encounter Closed Date Diagnosis/Indication Diagnosis SNOMED-CT Code Diagnosis ICD10 Code Diagnosis IMO Codes Diagnosis Note [id number] Lurdes Huntley, BROADCAST FIELD SUPERVISOR [address] [place] [address] 02/14/2025 08:28:21 02/14/2025 08:59:32 Chronic low back pain 352825593 M54.50 Degenerati on of lumbar intervertebral disc 27479650 M51.362 [id number] Long-term current use of opiate analgesic drug 6183233843 21775 Z79.891 Diagnostic /Lab: Order Presumptiv e UDT [...] by Organization Details LastModified Time None Recorded Payers Encounter Date Sequence Insurance Name Policy Number Policy Buenrostro Covered Member ID Buenrostro Member ID Guarantor Name 02/14/2025 1 [place] Jose Leal [id number] Jose Leal Notes Date Note Type Note Provider Name and Address Organization Details Recorded Time 02/14/2025 text/html He states pain is unchanged but he is still working a part-time job.He has pain at all times but it is varied in intensity. It is made worse w/ 'anything I do'.He states pain radiates up his back and down gena LE w/ N/TMedications provide partial relief without SE Lurdes Huntley, BROADCAST FIELD SUPERVISOR [address] [facility], [place], [address], [facility] 02/14/2025 15:47:15
== END ==
LOC: SL 06:27
PROVIDERS: PCP Physician Assistant; Visit Provider Physician Assistant
DX: I25.10 Atherosclerotic heart disease of native coronary artery without angina pectoris (principal); I48.91 Unspecified atrial fibrillation; G47.33 Obstructive sleep apnea (adult) (pediatric); I10 Essential (primary) hypertension; E66.9 Obesity, unspecified; R40.0 Somnolence
CPT/HCPCS: G0399

== ENCOUNTER 2025-04-30 12:44 | Outpatient (CLI) | payer MEDICARE, SELFPAY ==
--- OUTSIDE RECORDS SUMMARY | 2025-03-07 09:00 | XMS_ITS | Encounter Summary ---
Author Organization [facility] Address [address] [place] [address] Care Team Providers Care Pressure Washer Name Role Phone Pcp, No Primary Care Provider Unavailabl e Reason for Referral * Clinic-Administered Medication (Routine) - Closed Specialty Diagnoses / Procedures Referred By Jacqueline weaver Referred To Contact Diagnoses Intractable chronic migraine without aura and without status migrainosus Procedures PA INJECTION,ONABOTULINUMTOXINA Angus Balbuena MD [address] [place], [place] [id number] Phone: tel: fax: Referral ID Status Reason Start Date Expiration Date Visits Re quested Visits Authorized [id number] Closed 03/07/2025 09/06/2026 1 1 * Clinic-Administered Medication (Routine) - Closed Specialty Diagnoses / Procedures Referred By Jacqueline weaver Referred To Contact Diagnoses Intractable chronic migraine without aura and without status migrainosus Procedures PA INJECTION,ONABOTULINUMTOXINA Angus Balbuena MD [address] [address] Phone: tel: fax: Referral ID Status Reason Start Date Expiration Date Visits Re quested Visits Authorized [id number] Closed 03/07/2025 09/06/2026 1 1 Reason for Visit * Reason Comments Injections * Other Medical (Routine) - Closed Specialty Diagnoses / Procedures Referred By Jacqueline weaver Referred To Contact Pain Medicine Diagnoses Intractable chronic migraine without aura and without status migrainosus Procedures Injection - Chemodenervation, Head/Neck Angus Balbuena MD [address] [facility] [address] [place] [address] Phone: tel: fax: [facility] Interventional Pain Medicine [address] [place] [address] Phone: tel: fax: Referral ID Status Reason Start Date Expiration Date Visits Re quested Visits Authorized [id number] Closed 02/19/2025 08/21/2026 1 1 Encounter Details Date Type Department Care Team (Latest Contact Info) Description 03/07/2025 9:00 AM EDT Procedure Visit Interventional Pain Medicine [address] [place] [address] Angus Balbuena MD [address] [facility] [address] [place] [address] Anticoagulant long-term use (Primary Dx); Intractable chronic migraine without aura and without status migrainosus Social History Tobacco Use Types Packs/Day Years Used Date Smoking Tobacco: Never Smokeless Tobacco: Never Tobacco Cessation:Counseling Given: Not Answered Alcohol Use Standard Drinks/Week Comments Not Currently 0 (1 standard drink = 0.6 oz pur e alcohol) PHQ-2 Answer Date Recorded Patient Health Questionnaire-2 Score 0 10/29/2024 PHQ-9 Answer Date Recorded Patient Health Questionnaire-9 Score 7 10/29/2024 Sex and Gender Information Value Date Recorded Sex Assigned at Not on file Legal Sex Male 7:44 PM EDT Gender Identity Not on file Sexual Orientation Not on file documented as of this encounter Last Filed Vital Signs Vital Sign Reading Time Taken Comments Blood Pressure 102/68 03/07/2025 8:33 AM EDT Pulse 63 03/07/2025 8:33 AM EDT Temperature 36.4 C (97.5 F) 03/07/2025 8:33 AM EDT Respiratory Rate 18 03/07/2025 8:33 AM EDT Oxygen Saturation 95% 03/07/2025 8:33 AM EDT Inhaled Oxygen Concentration - - Weight 172 kg (379 lb 3.1 oz) 03/07/2025 8:33 AM EDT Height 198.1 cm (6' 6 ) 03/07/2025 8:33 AM EDT Body Mass Index 43.82 03/07/2025 8:33 AM EDT documented in this encounter Miscellaneous Notes * Clinician Note - Veronica Browne RN - 03/07/2025 9:00 AM EDTAssociated Order(s): Interventional Pain Nurse Procedure Protocol PREEMPT PROTOCOL Interventional Pain Nurse Procedure Protocol Documentation: Indications: Documentation supporting primary procedure completed by : Angus Balbuena MD See the provider procedure note for performed procedure details and findings. Pre-Procedure Checklist: Currently taking anticoagulant(s)?: yes Name of anticoagulant?: Clopidogrel and rivaroxaban Last dose of anticoagulant medication:: This am [employer] present?: yes Additional Pre-Procedure Comments: Time out at 0858 by rb Procedure details: Procedure start time:: 03/07/2025 9:04 AM Procedure end time:: 03/07/2025 9:15 AM Guidance used (if applicable): palpation Moderate conscious sedation used?: no Post-procedure details: Orientation at discharge?: Normal to time, normal to place, normal to person, normal to situation and completely oriented Mood and Affect normal?: yes Discharged to: home Mode of exit: Walked Attendance: Constant attendance by certified staff until patient recovered Recovery: Patient returned to pre-procedure baseline Estimated blood loss (see I/O flowsheets): no Specimens recovered: None Patient is stable for discharge or admission: yes Procedure completion: Tolerated well, no immediate complications * Progress Notes - Angus Balbuena MD - 03/07/2025 9:00 AM EDTAssociated Order(s): Injection - Chemodenervation, Head/Neck Pre-Procedure Diagnose(s): Intractable chronic migraine without aura and without status migrainosus Post-Procedure Diagnose(s): Intractable chronic migraine without aura and without status migrainosus Patient ID: Jose Leal is a 55 y.o. male. Encounter Diagnoses Name Primary? Intractable chronic migraine without aura and without status migrainosus Anticoagulant long-term use Yes Injection - Chemodenervation, Head/Neck Performed by: Angus Balbuena MD Authorized by: Angus Balbuena MD Procedure(s): Bilateral Frontalis, temporalis, Procerus, academic hospitalist, Occipitalis, Trapezius and cervical paraspinals Chemodenervation Injections - Preempt Protocol for migraines Anesthesia Type: Local only Complications: none Follow-up Plan: Clinic follow up as scheduled Procedure: This patient was seen earlier for a comprehensive evaluation of their painful condition.After discussing treatment options, the patient elected to proceed with chemodenervation injection(s) with botox. Written, informed consent was obtained before the start of the procedure. The patient's history of present illness, past medical history (including current medications and allergies), and physical examination were reviewed with the patient immediately before the procedure, and it was confirmed directly with the patient that they desired to proceed. The patient ambulated to the procedure room and was placed in the most comfortable position with pressure points padded. A time out was performed, confirming the patient's identification, allergy status, the side(s) of the procedure, and the procedure(s) to be performed. All operators were wearing h ats, masks and sterile gloves. 31 spastic points were identified at the above mentioned area(s). The noted areas were cleaned withchloraprep and a 27 gauge needle was inserted into the painful area. A solution containing 2 mL of Normal Saline mixed with a total of 200 units of onabotulinumtoxina was utilized. 0.5 mL of this solution was injected after negative aspiration at each of the aforementioned sites mixed. Sterile bandage was applied over the puncture site if required. Following completion of the procedure, the patient was monitored, then was later discharged in stable condition. A total of 155 unites of botox was utilized. 5 units was injected at each site above. 45 units of botox wasted Botox Lot numbers: [id number] documented in this encounter Plan of Treatment Upcoming Encounters Date Type Department Care Team (Late st Contact Info) Description 05/08/2025 8:30 AM EDT Office Visit Interventional Pain Medicine [address] [place] [address] Angus Balbuena MD [address] [place] [address] documented as of this encounter Procedures Procedure Name Priority Date/Time Associated Diagnosis Comments IVP NURSE PROCEDURE PROTOCOL Routine 03/07/2025 9:00 AM EDT PA CHEMODENERVATION MUSCLE NECK UNILAT FOR DYSTONIA Routine 03/07/2025 9:00 AM EDT Intractable chronic migraine without aura and without status migrainosus PA CHEMODERVATE FACIAL/TRIGEM/CERV MUSC MIGRAINE Routine 03/07/2025 9:00 AM EDT Intractable chronic migraine without aura and without status migrainosus documented in this encounter Results * Interventional Pain Nurse Procedure Protocol (03/07/2025 9:00 AM EDT) Narrative Veronica Browne RN - 03/07/2025 9:00 AM EDT Veronica Browne RN 03/07/2025 9:36 AM Interventional Pain Nurse Procedure Protocol Documentation: Indications: Documentation supporting primary procedure completed by : Angus Balbuena MD See the provider procedure note for performed procedure details and findings. Pre-Procedure Checklist: Currently taking anticoagulant(s)?: yes Name of anticoagulant?: Clopidogrel and rivaroxaban Last dose of anticoagulant medication:: This am [employer] present?: yes Additional Pre-Procedure Comments: Time out at 0858 by rb Procedure details: Procedure start time:: 03/07/2025 9:04 AM Procedure end time:: 03/07/2025 9:15 AM Guidance used (if applicable): palpation Moderate conscious sedation used?: no Post-procedure details: Orientation at discharge?: Normal to time, normal to place, normal to person, normal to situation and completely oriented Mood and Affect normal?: yes Discharged to: home Mode of exit: Walked Attendance: Constant attendance by certified staff until patient recovered Recovery: Patient returned to pre-procedure baseline Estimated blood loss (see I/O flowsheets): no Specimens recovered: None Patient is stable for discharge or admission: yes Procedure completion: Tolerated well, no immediate complications Angus Balbuena MD IN CLINIC/BEDSIDE ORDERABLES Final Result * PA CHEMODERVATE FACIAL/TRIGEM/CERV MUSC MIGRAINE, PA CHEMODENERVATION MUSCLE NECK UNILAT FOR DYSTONIA (03/07/2025 9:00 AM EDT) Narrative Angus Balbuena MD - 03/07/2025 9:00 AM EDT Angus Balbuena MD 03/07/2025 9:36 AM Injection - Chemodenervation, Head/Neck Performed by: Angus Balbuena MD Authorized by: Angus Balbuena MD Angus Balbuena MD IN CLINIC/BEDSIDE ORDERABLES Final Result documented in this encounter Visit Diagnoses Diagnosis Anticoagulant long-term use- Primary Encounter for long-term (current) use of anticoagulants Intractable chronic migraine without aura and without status migrainosus documented in this encounter Administered Medications Inactive Administered Medications - up to 3 most recent administrations Medication Order MAR Action Action Date Dose Rate Site onabotulinumtoxinA (Botox) injection 100 Units 100 Units, Intramuscular, Once, 1 dose, On Daphney 03/07/25 at 1000, RoutineIndications:Intracta ble chronic migraine without aura and without status migrainosus Given by Other 03/07/2025 9:04 AM EDT 100 Units Other onabotulinumtoxinA (Botox) injection 100 Units 100 Units, Intramuscular, Once, 1 dose, On [place] 03/07/25 at 1000, RoutineIndications:Intracta ble chronic migraine without aura and without status migrainosus Given by Other 03/07/2025 9:05 AM EDT 100 Units Other sodium chloride (PF) 0.9 % injection 20 mL 20 mL, Intracatheter, Once, 1 dose, On Daphney 03/07/25 at 1000, RoutineIndications:Intracta ble chronic migraine without aura and without status migrainosus Given by Other 03/07/2025 9:05 AM EDT 20 mL documented in this encounter Additional Health Concerns Assessment Noted Time PHQ-9 Depression Total Score: 7 10/30/19 8:55 AM EDT A fall risk assessment has been complete d for the patient 03/07/2025 8:29 AM EDT A Body Mass Index follow-up plan has been documented for the patient 03/07/2025 9:36 AM EDT documented as of this encounter Care Teams Pressure Washer Relationship Specialty Start Date End Date Pcp, [place] [address] PCP - General Family Medicine 09/26/24 04/24/25 documented as of this encounter
--- OUTSIDE RECORDS SUMMARY | 2025-04-30 12:51 | XMS_ITS | Encounter Summary ---
Author Organization Healthcare Address [address] [place] [address] Care Team Providers Care Whiskey Regauger Name Role Phone Pcp, No Primary Care Provider Unavailabl e Encounter Details Date Type Department Care Team (Latest Contact Info) Description 03/07/2025 Travel Social History Tobacco Use Types Packs/Day Years Used Date Smoking Tobacco: Never Smokeless Tobacco: Never Alcohol Use Standard Drinks/Week Comments Not Currently [...] on file documented as of this encounter Plan of Treatment Upcoming Encounters Date Type Department Care Team (Late st Contact Info) Description 05/08/2025 8:30 AM EDT Office Visit Interventional Pain Medicine [address] [place] [address] Angus Balbuena MD [address] [place] [address] documented as of this encounter Visit Diagnoses Not on filedocumented in this encounter Additional Health Concerns Assessment Noted Time PHQ-9 Depression Total Score: 7 10/30/19 25 8:55 AM EDT A fall risk assessment has been complete d for the patient 03/07/2025 8:29 AM EDT A Body Mass Index follow-up plan has been documented for the patient 03/07/2025 9:36 AM EDT documented as of this encounter Care Teams Whiskey Regauger Relationship Specialty Start Date End Date Pcp, [place] [address] PCP - General Family Medicine 09/26/24 04/24/25 documented as of this encounter
--- OUTSIDE RECORDS SUMMARY | 2025-04-30 12:51 | XMS_ITS | Encounter Summary ---
Author Organization [facility] Address [address] [id number] Care Team Providers Care Humidifier Attendant Name Role Phone Pcp, No Primary Care Provider Paco Payne MD Primary Care Provider [phone] Reason for Referral * Consultation (Routine) - Closed Specialty Diagnoses / Procedures Referred By Jacqueline weaver Referred To Contact Neurology Diagnoses Abnormal head CT Paco Garcia MD [address] [place] [address] Phone: tel: fax: Referral ID Status Reason Start Date Expiration Date V isits Requested Visits Authorized [id number] Closed Specialty Services Required 05/11/2024 11/10/2025 1 1 Encounter Details Date Type Department Care Team ([facility] Contact Info) Description 05/11/2024 [facility] [address] [place] [address] Paco Garcia MD [address] [place] [address] (Primary Dx) Social History Tobacco Use Types Packs/Day Years Used Date Smoking Tobacco: Every Day Alcohol Use Standard Drinks/Week Comments Yes 0 (1 standard drink = 0.6 oz pur e alcohol) Sex and Gender Information Value Date Recorded Sex Assigned at Not on file Legal Sex Male 7:44 PM EDT Gender Identity Not on file Sexual Orientation Not on file documented as of this encounter Plan of Treatment Upcoming Encounters Date Type Department Care Team (Late Contact Info) Description 05/08/2025 8:30 AM EDT Office Visit Interventional Pain Medicine [address] [place] [address] Angus Balbuena MD [address] [place] [address] Scheduled Referrals Name Type Priority Associated Diagnoses Order Schedule Ambulatory referral to Neurology Outpatient Referral Routine Abnormal head CT 1 Occurrences starting 05/11/2024 until 11/09/2025 documented as of this encounter Visit Diagnoses Diagnosis Abnormal head CT- Primary Nonspecific (abnormal) findings on radiological and other examination of skull and head documented in this encounter Care Teams Humidifier Attendant Relationship Specialty Start Date End Date Pcp, Reena [address] [place] [address] PCP - General Family Medicine 09/26/24 04/24/25 Paco Garcia MD [facility] [place] [address] PCP - General 04/25/25 documented as of this encounter
--- OUTSIDE RECORDS SUMMARY | 2025-04-30 12:51 | XMS_ITS | Clinical Summary ---
Author Organization [facility] Address [address] [place] [address] Care Team Providers Care Aligning Checker Name Role Phone Paco Garcia MD Primary Care Provider Allergies Active Allergy Reactions Criticality Noted Date Comments Fentanyl Other - please docum ent in the comment field Low 07/17/2024 Penicillins Other - please docum ent in the comment field Low 07/17/2024 Medications amLODIPine (Norvasc) 10 MG tablet Take 1 tablet (10 mg) by mouth Daily. Active atorvastatin (Lipitor) 20 MG tablet Take 1 tablet (20 mg) by mouth Daily at Bedtime. Active clopidogrel (Plavix) 75 MG tablet 1 tablet (75 mg). 4 Active dilTIAZem CD (Cardizem CD) 360 MG 24 hr capsule 4 Active furosemide (Lasix) 20 MG tablet Take 1 tablet (20 mg) by mouth Daily. Active gabapentin (Neurontin) 800 MG tablet 1 tablet (800 mg). 4 Active levocetirizine (Xyzal) 5 MG tablet 04/26/20 2 4 Active lidocaine (Lidoderm) 5 % patch Active metoclopramide (Reglan) 10 MG tablet 4 Active nebivolol (Bystolic) 20 MG tablet 4 Active Xarelto 20 MG tablet Active sildenafil (Viagra) 100 MG tablet 1 tablet (100 mg). 4 Active spironolactone (Aldactone) 25 MG tablet 4 Active tiZANidine (Zanaflex) 4 MG tablet Active amitriptyline (Elavil) 25 MG tabletIndications:I ntractable chronic migraine with aura and without status migrainosus Take 1 tablet (25 mg) by mouth every night. 60 tablet 3 4 Active Qulipta 60 MG tablet 5 Active HYDROcodone-acetami nophen ([place]) 10-325 MG tablet 5 Active promethazine (Phenergan) 25 MG tablet 5 Active Rimegepant Sulfate (Nurtec) 75 MG orally disintegrating tablet Active Mounjaro 12.5 MG/0.5ML solution auto-injector solution pen-injector 5 Active lisinopril 40 MG tablet 5 Active Active Problems No known active problems Encounters Date Type Department Care Team Description 03/07/2025 9:00 AM EDT Procedure Visit Interventional Pain Medicine [address] [place] [address] Angus Balbuena MD Anticoagulant long-term use (Primary Dx); Intractable chronic migraine without aura and without status migrainosus 03/07/2025 Travel 02/18/2025 3:30 PM EDT Office Visit Interventional Pain Medicine [address] [place] [address] Angus Balbuena MD Intractable chronic migraine without aura and without status migrainosus (Primary Dx) 02/18/2025 Travel from Last 3 Months Family History Medical History Relation Name Comments Cancer Other 1 Conversions - Other Other 2 Coronary arteriosclerosis Diabetes Other 3 Hypertension Other 4 Relation Name Status Comments Other 1 Other 2 Other 3 Other 4 Social History Tobacco Use Types Packs/Day Years [...] on file Sexual Orientation Not on file Last Filed Vital Signs Vital Sign Reading [...] Mass Index 43.82 03/07/2025 8:33 AM EDT Plan of Treatment Upcoming Encounters Date Type Department Care Team (Late st Contact Info) Description 05/08/2025 8:30 AM EDT Office Visit Interventional Pain Medicine [address] [place] [address] Angus Balbuena MD [address] [place] [id number] Health Maintenance Due Date Last Done Comments [facility]-Diabetes: Hemoglobin A1C 1969 [facility]-HIV Screening 1969 [facility]-Hepatitis C Screening 1969 [facility]-Medicare Annual Wellness (AWV) 1969 [facility]-Infant/Child/Adol SDOH Screenings 1969 Diabetes: Dental Exam 1979 [facility]- SDOH Screenings 1987 [facility]-Adult SDOH Screenings 1987 [facility]-DTaP,Tdap,and Td Vaccines (1 - Tdap) 02/12/1988 [facility]-Hepatitis B Vaccines (1 of 3 - 19+ 3-dose series) 02/12/1988 CT Colonography 2014 Colonoscopy 2014 [facility]-DNA 2014 FIT 2014 FOBT 2014 Sigmoidoscopy 2014 [facility]-Colorectal Cancer Screening 2014 [facility]-Zoster Vaccines (2 of 2) 08/22/2022 06/27/2022 [id number] Vaccine ( season) 2025 05/21/2022, 06/15/2021, 10/21/2020 [facility]-Influenza Vaccine (#1) 03/18/202505/02, 05/21/2022, 05/28/2021 [facility]-Depression Screening 10/29/2025 10/29/2024, 10/16 [facility]-Pneumococcal Vaccine: 50+ Years Completed 07/08/2022 [facility]-Obesity Intervention Completed 025, 02/18/2025, 11/13/2024, Additional history exists HPV Vaccines Aged Out No longer eligi ble based on patient's age to complete this topic [facility]-HIB Vaccines Aged Out No longer e ligible based on patient's age to complete this topic [facility]-Hepatitis A Vaccines Aged Out No longer eligible based on patient's age to complete this topic [facility]-IPV Vaccines Aged Out No longer e ligible based on patient's age to complete this topic [facility]-Rotavirus Vaccines Aged Out No lo nger eligible based on patient's age to complete this topic Procedures Procedure Name Priority Date/Time Associated Diagnosis Comments IVP NURSE PROCEDURE PROTOCOL Routine 03/07/2025 9:00 AM EDT ID CHEMODENERVATION MUSCLE NECK UNILAT FOR DYSTONIA Routine 03/07/2025 9:00 AM EDT Intractable chronic migraine without aura and without status migrainosus ID CHEMODERVATE FACIAL/TRIGEM/CERV MUSC MIGRAINE Routine 03/07/2025 9:00 AM EDT Intractable chronic migraine without aura and without status migrainosus from Last 3 Months Results * Interventional Pain Nurse Procedure Protocol [...] Last dose of anticoagulant medication:: This am Bias Binding Cutter present?: yes Additional Pre-Procedure Comments: Time out [...] Procedure completion: Tolerated well, no immediate complications us Angus Balbuena MD IN CLINIC/BEDSIDE ORDERABLES Final Result * ID CHEMODERVATE FACIAL/TRIGEM/CERV MUSC MIGRAINE, ID CHEMODENERVATION MUSCLE NECK UNILAT FOR DYSTONIA (03/07/2025 9:00 AM EDT) Narrative Angus Balbuena MD - 03/07/2025 9:00 AM EDT Angus Balbuena MD 03/07/2025 9:36 AM Injection - Chemodenervation, Head/Neck Performed by: Angus Balbuena MD Authorized by: Angus Balbuena MD us Angus Balbuena MD IN CLINIC/BEDSIDE ORDERABLES Final Result from Last 3 Months Insurance MEDICARE [place]ICA[place] Care Teams Aligning Checker Relationship Specialty Start Date End Date Paco Garcia MD [address] [place] [address] PCP - General 04/25/25
--- OUTSIDE RECORDS SUMMARY | 2025-04-30 12:51 | XMS_ITS | Encounter Summary ---
Author Organization [facility] Address [address] [id number] Care Team Providers Care Senior Procurement Manager Name Role Phone Pcp, No Primary Care Provider Paco Payne MD Primary Care Provider [phone] Reason for Referral * Consultation (Routine) - Closed Specialty Diagnoses / Procedures Referred By Contac t Referred To Contact Pain Medicine Diagnoses Traumatic injury of head, initial encounter Paco Garcia MD [address] [place] [address] Phone: tel: fax: [facility] Interventional Pain Medicine [address] [place] [address] Phone: tel: fax: Referral ID Status Reason Start Date Expiration Date V isits Requested Visits Authorized [id number] Closed Specialty Services Required 10/11/2024 04/12/2026 1 1 Encounter Details Date Type Department Care Team (Late st Contact Info) Description 10/11/2024 Community [facility] [address] [place] [address] Paco Garcia MD [address] [place] [address] Traumatic injury of head, initial encounter (Primary Dx) Social History Tobacco Use Types Packs/Day Years Used Date Smoking Tobacco: Every Day Smokeless Tobacco: Never Alcohol Use Standard Drinks/Week [...] Medicine [address] [place] [address] Angus Balbuena MD [address] [place] [address] Scheduled Referrals Name Type Priority Associated Diagnoses Order Schedule Ambulatory referral to Interventional Pain Outpatient Referral Routine Traumatic injury of head, initial encounter Expected: 10/11/2024 (Approximate), Expires: 04/13/2026 documented as of this encounter Visit Diagnoses Diagnosis Traumatic injury of head, initial encounter- Primary documented in this encounter Additional Health Concerns Assessment Noted Time A fall risk assessment has been complete d for the patient 07/17/2024 9:34 AM EST A Body Mass Index follow-up plan has been documented for the patient 07/17/2024 12:17 PM EST documented as of this encounter Care Teams Senior Procurement Manager Relationship Specialty Start Date End Date Pcp, [place] [address] PCP - General Family Medicine 09/26/24 04/24/25 Paco Garcia MD [address] [place] [id number] PCP - General 04/25/25 documented as of this encounter
[2025-04-30 13:14] LABS: Blood Urea Nitrogen 21 mg/dl (9-20); Creatinine,Serum 1.10 mg/dl (0.66-1.25); Estimated Glomerular Filt Rate 69 ml/min (>60); GFR (African American) 84 ML/MIN (>60)
--- NOTE | 2025-04-30 13:45 | MR_ITS ---
FINAL REPORT TECHNIQUE: Multiplanar and multisequence MR imaging was performed through the lumbar spine before and after contrast administration. CLINICAL HISTORY: LT S nerve impingement. BILATERAL LOW BACK PAIN WITH LEG PAIN, NUMBNESS AND TINGLING. SYMPTOMS XYEARS. COMPARISON: 04/27/2022 FINDINGS: The vertebral bodies are normally aligned. The vertebral body heights are preserved. There is no bone marrow edema. There is no abnormal bone marrow enhancement. The cord terminates at L1. There is normal signal within the distal cord. There is no abnormal enhancement in the distal cord. Gallstones are noted. There are bilateral small T2 hyperintense renal lesions, likely cysts. There is no acute paraspinal abnormality. There is no loculated fluid collection. L1-L2: Annular disc bulge with degenerative endplate changes and facet osteoarthropathy. Mild central canal stenosis. No foraminal narrowing. L2-L3: Annular disc bulge with degenerative endplate changes and facet osteoarthropathy. No central canal stenosis. Mild bilateral neuroforaminal narrowing. L3-L4: Annular disc bulge with degenerative endplate changes and facet osteoarthropathy. Mild central canal stenosis. Moderate right greater than left neuroforaminal narrowing. L4-L5: Annular disc bulge with degenerative endplate changes and facet osteoarthropathy. Mild central canal stenosis. Moderate right and severe left neuroforaminal narrowing. L5-S1: Annular disc bulge with degenerative endplate changes and facet osteoarthropathy. Mild to moderate central canal stenosis. Moderate right and severe left neuroforaminal narrowing. IMPRESSION: Multilevel degenerative disc disease has progressed at all levels compared to the prior study. Gallstones. No abnormal enhancement. Reviewed, Interpreted and Dictated by Brandi Argueta MD Transcribed by Kortney Perea Authenticated and [facility]
[2025-04-30] MEDS: SODIUM CHLORIDE 0.9% 10ML SYR (RAD ONLY) 10 ML IV (14:30)
[2025-04-30] MEDS: GADOTERIDOL INJ 10ML SYRINGE 10 ML IV (14:30)
[2025-04-30] MEDS: GADOTERIDOL INJ 20ML SYRINGE 20 ML IV (14:30)
== END 2025-04-30 23:59 | disposition home or self-care (01) ==
LOC: RAD 12:45
PROVIDERS: PCP Family Medicine; Visit Provider Family Medicine
DX: M51.16 Intervertebral disc disorders with radiculopathy, lumbar region (principal); K80.20 Calculus of gallbladder without cholecystitis without obstruction
CPT/HCPCS: 36415; 72158; 82565; 84520; A9576